=== PATIENT | male | born 1955 | race Caucasian/White ===

== ENCOUNTER 2020-10-08 12:52 | Emergency (ER) | payer MEDICARE ==
[~2020-10-08] VITALS: Ht 177.8 cm; Wt 136.1 kg
[2020-10-08 15:00] LABS: BASOPHILS ABSOLUTE AUTO 0.06 K/mm3 (0.00-0.23); BASOPHILS PERCENT AUTO 0 % (0-2); EOSINOPHILS ABSOLUTE AUTO 0.15 K/mm3 (0.00-0.68); EOSINOPHILS PERCENT AUTO 1 % (0-6); Hemoglobin 17.6 g/dL (13.5-17.5); IMMATURE GRAN ABSOLUTE AUTO 0.07 K/mm3 (0.00-0.10); IMMATURE GRAN PERCENT AUTO 1 % (0-1); LYMPHOCYTES ABSOLUTE AUTO 1.64 K/mm3 (0.84-5.20); LYMPHOCYTES PERCENT AUTO 11 % (21-46); MONOCYTES ABSOLUTE AUTO 1.21 K/mm3 (0.16-1.47); MONOCYTES PERCENT AUTO 8 % (4-13); Mean Corpuscular HGB 29.6 pg (26.0-34.0); Mean Corpuscular Volume 93 fL (80-100); Mean Platelet Volume 9.3 fL (9.1-12.4); NEUTROPHILS PERCENT AUTO 80 % (41-73); Platelet Count 222 K/mm3 (150-400); RDW Standard Deviation 44.4 fL (35.1-46.3); Red Blood Cell Count 5.94 M/mm3 (4.30-5.90); White Blood Cell Count 15.33 K/mm3 (4.00-11.30)
[2020-10-08 15:14] LABS: International Normalized Ratio 1.06; Prothrombin Time Results 11.3 Sec (9.7-11.5)
[2020-10-08 15:28] LABS: Alanine Aminotransfer (ALT/SGP 23 U/L (12-78); Albumin, Blood 2.9 g/dL (3.4-5.0); Albumin/Globulin Ratio 0.7 (0.8-1.8); Alk Phos 64 U/L (50-136); Anion Gap 3 mmol/L (6-16); Aspartate Aminotrans (AST/SGOT 22 U/L (12-37); Bilirubin, Total 0.9 mg/dL (0.1-1.0); Blood Urea Nitrogen 13 mg/dL (8-24); Bun/Creatinine Ratio 29.5 (12.0-20.0); CO2, Blood 32 mmol/L (21-32); Calcium, Blood 8.5 mg/dL (8.5-10.1); Chloride, Blood 103 mmol/L (98-108); Creatinine, Blood 0.44 mg/dL (0.60-1.20); Globulin, Blood 4.4 g/dL (2.2-4.0); Glomerular Filtration Rate >60 (60-); Glucose, Blood 128 mg/dL (70-99); Potassium, Blood 4.1 mmol/L (3.5-5.5); Sodium, Blood 138 mmol/L (136-145); Total Protein, Blood 7.3 g/dL (6.4-8.2)
[2020-10-08] MEDS ORDERED: WARF5 PO (15:50)
[2020-10-08] MEDS ORDERED: CEPH500 PO (16:09)
== END 2020-10-08 16:12 | disposition home or self-care (01) ==
LOC: ER 12:52
PROVIDERS: Emergency Medicine
DX: L89.159 Pressure ulcer of sacral region, unspecified stage (principal); Z76.0 Encounter for issue of repeat prescription; Z72.3 Lack of physical exercise
CPT/HCPCS: 36415; 80053; 85025; 85610; 99284-25; A9270

== ENCOUNTER 2020-11-18 13:19 | Emergency (ER) | payer OTHER ==
[~2020-11-18] VITALS: Ht 182.9 cm; Wt 170.1 kg
[~2020-11-18 13:19] MED LIST: CEPH500 PO; WARF5 PO
[2020-11-18] MEDS ORDERED: JANTOVEN2.5 M1 (13:31)
[2020-11-18] MEDS ORDERED: AMLODIPINE BES2.5 MG PO (13:32)
[2020-11-18 14:42] LABS: BASOPHILS ABSOLUTE AUTO 0.05 K/mm3 (0.00-0.23); BASOPHILS PERCENT AUTO 0 % (0-2); EOSINOPHILS ABSOLUTE AUTO 0.17 K/mm3 (0.00-0.68); EOSINOPHILS PERCENT AUTO 2 % (0-6); Hemoglobin 18.4 g/dL (13.5-17.5); IMMATURE GRAN ABSOLUTE AUTO 0.03 K/mm3 (0.00-0.10); IMMATURE GRAN PERCENT AUTO 0 % (0-1); LYMPHOCYTES ABSOLUTE AUTO 2.09 K/mm3 (0.84-5.20); LYMPHOCYTES PERCENT AUTO 18 % (21-46); MONOCYTES ABSOLUTE AUTO 0.91 K/mm3 (0.16-1.47); MONOCYTES PERCENT AUTO 8 % (4-13); Mean Corpuscular Volume 91 fL (80-100); Mean Platelet Volume 9.4 fL (9.1-12.4); NEUTROPHILS ABSOLUTE AUTO 8.12 K/mm3 (1.96-9.15); NEUTROPHILS PERCENT AUTO 71 % (41-73); Platelet Count 192 K/mm3 (150-400); RDW Coefficient Variation 13.2 % (11.7-14.2); RDW Standard Deviation 44.2 fL (35.1-46.3); Red Blood Cell Count 6.13 M/mm3 (4.30-5.90); White Blood Cell Count 11.37 K/mm3 (4.00-11.30)
[2020-11-18 14:46] LABS: Hematocrit 55.7 % (37.0-53.0)
[2020-11-18 15:00] LABS: Alanine Aminotransfer (ALT/SGP 30 U/L (12-78); Albumin/Globulin Ratio 0.7 (0.8-1.8); Alk Phos 77 U/L (50-136); Anion Gap 2 mmol/L (6-16); Aspartate Aminotrans (AST/SGOT 17 U/L (12-37); Bilirubin, Total 0.7 mg/dL (0.1-1.0); Blood Urea Nitrogen 8 mg/dL (8-24); Bun/Creatinine Ratio 15.6 (12.0-20.0); CO2, Blood 34 mmol/L (21-32); Calcium, Blood 8.7 mg/dL (8.5-10.1); Chloride, Blood 103 mmol/L (98-108); Creatinine, Blood 0.51 mg/dL (0.60-1.20); Globulin, Blood 4.6 g/dL (2.2-4.0); Glomerular Filtration Rate >60 (60-); Glucose, Blood 105 mg/dL (70-99); Potassium, Blood 4.1 mmol/L (3.5-5.5); Sodium, Blood 139 mmol/L (136-145); Total Protein, Blood 7.6 g/dL (6.4-8.2)
== END 2020-11-18 17:05 | disposition home or self-care (01) ==
LOC: ER 13:19
PROVIDERS: Emergency Medicine
DX: S91.102A Unspecified open wound of left great toe without damage to nail, initial encounter (principal); Z79.01 Long term (current) use of anticoagulants; Z86.711 Personal history of pulmonary embolism; Z87.891 Personal history of nicotine dependence; X58.XXXA Exposure to other specified factors, initial encounter
CPT/HCPCS: 36415; 73630; 80053; 83605; 85025; 87040; 96361; 96374; 99284-25; J2270; J7030

== ENCOUNTER 2020-11-20 11:34 | Emergency (ER) | payer OTHER ==
[~2020-11-20] VITALS: Ht 177.8 cm; Wt 170.1 kg
[~2020-11-20 11:34] MED LIST changes: +AMLODIPINE BES2.5 MG PO; +JANTOVEN2.5 M1
[2020-11-20] MEDS ORDERED: Norco 5-325 Ta1 EACH PO (12:57)
== END 2020-11-20 17:00 | disposition home or self-care (01) ==
LOC: ER 11:34
DX: L60.0 Ingrowing nail (principal); Z79.01 Long term (current) use of anticoagulants; Z79.899 Other long term (current) drug therapy
CPT/HCPCS: 11765; 99284-25; A9270

== ENCOUNTER 2020-12-19 15:16 | Inpatient (IN) | payer OTHER, MEDICARE ==
[~2020-12-19] VITALS: Ht 175.3 cm; Wt 167.5 kg
[~2020-12-19 15:16] MED LIST changes: +Norco 5-325 Ta1 EACH PO
[2020-12-19 16:18] LABS: Source, Urine Clean Catch
[2020-12-19 16:28] LABS: BASOPHILS ABSOLUTE AUTO 0.05 K/mm3 (0.00-0.23); BASOPHILS PERCENT AUTO 0 % (0-2); EOSINOPHILS ABSOLUTE AUTO 0.12 K/mm3 (0.00-0.68); EOSINOPHILS PERCENT AUTO 1 % (0-6); Hemoglobin 17.9 g/dL (13.5-17.5); IMMATURE GRAN ABSOLUTE AUTO 0.05 K/mm3 (0.00-0.10); IMMATURE GRAN PERCENT AUTO 0 % (0-1); LYMPHOCYTES ABSOLUTE AUTO 2.22 K/mm3 (0.84-5.20); LYMPHOCYTES PERCENT AUTO 20 % (21-46); MONOCYTES ABSOLUTE AUTO 0.68 K/mm3 (0.16-1.47); MONOCYTES PERCENT AUTO 6 % (4-13); Mean Corpuscular HGB 29.3 pg (26.0-34.0); Mean Corpuscular HGB Conc 32.2 g/dL (31.5-36.5); Mean Corpuscular Volume 91 fL (80-100); Mean Platelet Volume 9.9 fL (9.1-12.4); NEUTROPHILS ABSOLUTE AUTO 8.02 K/mm3 (1.96-9.15); NEUTROPHILS PERCENT AUTO 72 % (41-73); Platelet Count 166 K/mm3 (150-400); RDW Coefficient Variation 14.1 % (11.7-14.2); RDW Standard Deviation 46.8 fL (35.1-46.3); White Blood Cell Count 11.14 K/mm3 (4.00-11.30)
[2020-12-19 16:32] LABS: Appearance, Urine Hazy (Clear); Bilirubin, Urine Neg (Neg); Blood, Urine 2+ (Neg); Color, Urine Yellow (P-Yellow); Glucose Qualitative, Urine Neg (Neg); Ketones, Urine Neg (Neg); Leukocyte Esterase, Urine 1+ (Neg); Nitrite, Urine Neg (Neg); Protein, Urine 1+ (Neg); Urobilinogen, Urine 1+ (Normal)
[2020-12-19 16:46] LABS: Alanine Aminotransfer (ALT/SGP 23 U/L (12-78); Albumin, Blood 2.9 g/dL (3.4-5.0); Albumin/Globulin Ratio 0.6 (0.8-1.8); Alk Phos 66 U/L (50-136); Anion Gap 2 mmol/L (6-16); Aspartate Aminotrans (AST/SGOT 15 U/L (12-37); Bilirubin, Total 0.8 mg/dL (0.1-1.0); Blood Urea Nitrogen 12 mg/dL (8-24); Bun/Creatinine Ratio 22.2 (12.0-20.0); CO2, Blood 30 mmol/L (21-32); Calcium, Blood 8.5 mg/dL (8.5-10.1); Chloride, Blood 104 mmol/L (98-108); Creatinine, Blood 0.54 mg/dL (0.60-1.20); Globulin, Blood 4.8 g/dL (2.2-4.0); Glomerular Filtration Rate >60 (60-); Glucose, Blood 182 mg/dL (70-99); Sodium, Blood 136 mmol/L (136-145); Total Protein, Blood 7.7 g/dL (6.4-8.2)
[2020-12-19 17:14] LABS: Bacteria Many /hpf; Red Blood Cells, Urine 0-2 /hpf (0-2); Squamous Epithelial Cells Few /hpf (Few)
[2020-12-19 18:09] LABS: Hematocrit 55.6 % (37.0-53.0)
[2020-12-19] MEDS ORDERED: CEPH500 PO (18:39)
[2020-12-20] MEDS ORDERED: JANTOVEN5 M2 PO (11:41)
[2020-12-20] MEDS ORDERED: WARF5 PO (11:57)
[2020-12-20] MEDS ORDERED: IPRAT-ALBUT 0.5-3 ML INH (11:58)
[2020-12-20 19:01] LABS: Troponin I 0.019 ng/mL (0.000-0.040)
[2020-12-20 19:08] LABS: International Normalized Ratio 1.46; Prothrombin Time Results 15.3 Sec (9.7-11.5)
--- NOTE | 2020-12-20 19:55 | NUR ---
Transfer report from [facility] on PT with JAMES on CPAP has own & morbid obesity who has been unable to care for self or ambulate since 08/2020. Being admitted & obs status geiing antibiotics to tx draining abscess. On+ Tele & anticoagulants coumadin for hx PE/DVT. 4 max to toilet & is incontinent of bowel & bladder per RN report. Functional paraplegia, hx of chronic wounds. Await admission to lift room.
--- NOTE | 2020-12-20 21:19 | NUR ---
DR DANIELSON called to inform of request for DNR status order obtained. PT has coccyx sacral dcub with bleeding wounds present on admission. Also has lt great toenail removal recently with blackened area & draining, lt axilla drainging absxcess site, rash bilat groin & skin folds, wound care & photodoc wounds orderes obtained. Bladder scan for incont uncontrolled & place yeh cath for PVR greater than 300 ml. Antifungals ordered for skin care. Will photodoc wounds & care as ordered.
[2020-12-21 02:23] LABS: BASOPHILS ABSOLUTE AUTO 0.06 K/mm3 (0.00-0.23); BASOPHILS PERCENT AUTO 1 % (0-2); EOSINOPHILS ABSOLUTE AUTO 0.21 K/mm3 (0.00-0.68); EOSINOPHILS PERCENT AUTO 2 % (0-6); Hematocrit 52.8 % (37.0-53.0); Hemoglobin 17.2 g/dL (13.5-17.5); IMMATURE GRAN ABSOLUTE AUTO 0.06 K/mm3 (0.00-0.10); IMMATURE GRAN PERCENT AUTO 1 % (0-1); LYMPHOCYTES ABSOLUTE AUTO 2.25 K/mm3 (0.84-5.20); LYMPHOCYTES PERCENT AUTO 17 % (21-46); MONOCYTES ABSOLUTE AUTO 1.02 K/mm3 (0.16-1.47); MONOCYTES PERCENT AUTO 8 % (4-13); Mean Corpuscular HGB 29.1 pg (26.0-34.0); Mean Corpuscular HGB Conc 32.6 g/dL (31.5-36.5); Mean Corpuscular Volume 89 fL (80-100); Mean Platelet Volume 9.5 fL (9.1-12.4); NEUTROPHILS ABSOLUTE AUTO 9.67 K/mm3 (1.96-9.15); NEUTROPHILS PERCENT AUTO 73 % (41-73); Platelet Count 192 K/mm3 (150-400); RDW Coefficient Variation 13.6 % (11.7-14.2); RDW Standard Deviation 45.5 fL (35.1-46.3); Red Blood Cell Count 5.91 M/mm3 (4.30-5.90); White Blood Cell Count 13.27 K/mm3 (4.00-11.30)
[2020-12-21 02:42] LABS: Alanine Aminotransfer (ALT/SGP 20 U/L (12-78); Albumin, Blood 2.6 g/dL (3.4-5.0); Albumin/Globulin Ratio 0.6 (0.8-1.8); Alk Phos 59 U/L (50-136); Anion Gap 4 mmol/L (6-16); Aspartate Aminotrans (AST/SGOT 11 U/L (12-37); Bilirubin, Total 1.3 mg/dL (0.1-1.0); Blood Urea Nitrogen 15 mg/dL (8-24); Bun/Creatinine Ratio 27.4 (12.0-20.0); CO2, Blood 32 mmol/L (21-32); CPK Creatine Kinase 80 U/L (39-308); Chloride, Blood 103 mmol/L (98-108); Creatinine, Blood 0.55 mg/dL (0.60-1.20); Globulin, Blood 4.4 g/dL (2.2-4.0); Glomerular Filtration Rate >60 (60-); Glucose, Blood 112 mg/dL (70-99); Potassium, Blood 3.8 mmol/L (3.5-5.5); Sodium, Blood 139 mmol/L (136-145); Troponin I 0.022 ng/mL (0.000-0.040)
[2020-12-21 10:28] LABS: International Normalized Ratio 1.57; Prothrombin Time Results 16.4 Sec (9.7-11.5)
--- NOTE | 2020-12-21 18:01 | NUR ---
SHIFT SUMMARY PT AWAKE AND ALERT ALL DAY. CPAP ON MOST OF DAY WITH NOSE MASK. HAS DENIED PAIN OR NAUSEA. DRESSING APPLIED TO COCCYX AREA. CREAMS AND POWDERS TO RED AREAS AND RASHES. WALL LIFT USED TO TRANSFER PT TO RECLINER CHAIR AND PT REPORTED GREAT ENJOYMENT BEING IN CHAIR FOR THE FIRST TIME IN SEVERAL MONTHS. REPOSITIONED FOR SKIN CARE. INCONTINENT OF URINE.
--- NOTE | 2020-12-21 22:22 | NUR ---
ASSUMPTION OF CARE. AOX3, OBESE AND IMMOBILE, HAS BEEN FOR SOME TIMES. UNABLE TO SIT UP HE IS UNABLE TO BREATH. HAS TO KEEP CPAP ON AT ALL TIMES. SATS >90%. LUNG SOUNDS DIMINISHED. INCONTIENT OF BOWEL AND URINE. CHANGED PADDING. 3-4 PERSON ASSIST OR USE OF LIFT. CLEANED SKIN FOLDS AND APPLIED POWDER. CHANGED DRESSING IN ARM PIT LEFT SIDE. DRAINAGE IS PUS LIKE AND THERE IS FIRM INDURATED AREA AROUND, TENDER TO TOUCH. REPOSITIONED ON RIGHT SIDE. DENIES ANY NEEDS. CALL LIGHT IS IN REACH.
--- NOTE | 2020-12-22 05:28 | NUR ---
SHIFT SUMMARY: AOX3, BEDBOUND, LIFT TO MOVE. 2-3 PERSON TURN. SOME OF THE SKIN FOLDS ARE IMPROVING WITH USE OF THE ANTI-FUNGAL POWDER RATHER THEN CREAM. GROIN STILL VERY RED DUE TO INCONTINENCE. CALUS BUILDUP ON RIGHT POSTERIOR INNER THIGH FROM LAYING IN SAME POSITION. SAME TO BOTTOM AREA, REDNESS ON BOTTOM, FOAM TO PROTECT. HAS SMALL BM LAST NIGHT. USES CPAP ALMOST CONTINUOUSLY, UNABLE TO BREATH WHEN HE SITS UP. SATS REMAIN >90%. LUNG SOUNDS VERY DIMINISHED. ABCESS IN LEFT AXILLARY DRAINING PUS, VERY SMALL AMOUNTS. INDURATED ALL AROUND, COULD BENIFIT FROM I&D. DRESSING IN PLACE. REPOSITIONED EVERY 2 HOURS. VS WNL, AFEBRILE. NO PAIN. NO OTHER CHANGES TO REPORT. CALL LIGHT IN REACH.
[2020-12-22 05:31] LABS: International Normalized Ratio 2.24; Prothrombin Time Results 22.9 Sec (9.7-11.5)
--- NOTE | 2020-12-22 19:25 | NUR ---
a+o but sleepy, says he just is not motivated but feels fine, denied pain, call light in reach, no acute changes noted, bed in low position, saline locked, rm air, bsr shared with returning noc nurse and pt
--- NOTE | 2020-12-22 21:52 | NUR ---
ASSUMPTION OF CARE. DEL IS DOING GOOD TODAY. NO ACUTE CHANGES OR CONCERN. WOUND TO LEFT AXILLARY SMALL PUS LIKE DRAINAGE, FIRM SURROUNDING AREA, TENDER. REDNESS IN SKIN FOLDS ARE IMPROVING. BOTTOM STILL RED, DRESSING IN PLACE. EDEMA NOTED TO BLE, ELEVATED ON PILLOWS. CHANGED ATTENDS PAD. RT IN ROOM FOR BREATHING TREATMENT. CALL LIGHT IN REACH.
[2020-12-23 05:16] LABS: International Normalized Ratio 2.63; Prothrombin Time Results 26.6 Sec (9.7-11.5)
--- NOTE | 2020-12-23 06:04 | NUR ---
SHIFT SUMMARY: AOX3, BEDBOUND TO LIFT PATIENT. WAITING FOR PLACEMENT. ABCESS IN LEFT AXILLARY DRAINING VERY LITTLE AND INDURATED AND FIRM. NOT DECREASING IN SIZE. TENDER TO TOUCH. REDNESS IN SKIN FOLDS CONTINUE TO IMPROVE. GROIN REDNESS SLIGHTLY BETTER, NO CHANGE TO BOTTOM, DRESSING INTAKE. CPAP CONTINOUSLY, REPOSITION EVERY 2 HOURS. NO PAIN. VS WNL, AFEBRILE. CALL LIGHT IN REACH.
--- NOTE | 2020-12-23 19:22 | NUR ---
a+o, no acute changes, medicated as prescribed, worked with pt but made little progress, call light in reach, cpap, saline locked, bsr shared with noc nurse and pt
--- NOTE | 2020-12-24 04:43 | NUR ---
SHIFT SUMMARY A/O, ABLE TO MAKE NEEDS KNOWN. COOPERATIVE WITH CARE. CALLS AND ANSWERS QUESTIONS APPROPRIATELY. NO C/O PAIN/DISCOMFORT. REMAINS INCONT OF BOWEL/BLADDER. ATTENDS IN PLACE WITH ROUTINE CHECKS. BEDREST WITH REPOSITIONING. LIFT UTILIZED; HOWEVER, PATIENT ABLE TO ASSIST WITH TURNING. REMAINED ON CPAP T/O NIGHT. ABLE TO REST SOME OVERNIGHT. CONCERNED ABOUT EXCESS WAX IN EARS; STATED WOULD LIKE ATTENDING TO CLEAN THEM OUT IF POSSIBLE. NO ACUTE CHANGES NOTED OVERNIGHT. L AXILLA INDURATED WITH SEROSANGUINOUS DRAINAGE NOTED; CLEANSED AND PLACED EXUDRY PAD TO AREA. BED REMAINED IN LOWEST POSITION. CALL LIGHT AND BELONGINGS WITHIN REACH. CONTINUE WITH CURRENT PLAN OF CARE. REPORT TO ONCOMING RN.
[2020-12-24 05:46] LABS: International Normalized Ratio 2.74; Prothrombin Time Results 27.7 Sec (9.7-11.5)
--- NOTE | 2020-12-24 19:35 | NUR ---
call light in reach, bed bound, a+o, call light in reach, ears cleaned, bladder scanned, depends and pads changed, still needing assist to move in bed, requested larger bed but none available yet, cpap needs 02 when pt sleeps stays above 90 when awake even with o2 turned off, saline locked
--- NOTE | 2020-12-25 05:03 | NUR ---
SHIFT SUMMARY A/O, ABLE TO MAKE NEEDS KNOWN. COOPERATIVE WITH CARE. CALLS AND ANSWERS QUESTIONS APPROPRIATELY. NO C/O PAIN/DISCOMFORT. REMAINS INCONT OF BOWEL/BLADDER. ATTENDS IN PLACE WITH ROUTINE CHECKS. APPEARED TO REST MUCH OF THE NIGHT. NO ACUTE CHANGES NOTED. BED REMAINS IN LOWEST POSITION. CALL LIGHT AND BELONGINGS WITHIN REACH. CONTINUE WITH CURRENT PLAN OF CARE. REPORT TO ONCOMING RN.
[2020-12-25 05:30] LABS: International Normalized Ratio 2.76; Prothrombin Time Results 27.9 Sec (9.7-11.5)
--- NOTE | 2020-12-25 19:30 | NUR ---
PT [id number]. CALLS APPROPRIATELY. BM TODAY. APPETITE GOOD. WEARS CONTINUOUS CPAP, WITH O2 TITRATION 1-4L TO KEEP SAT ABOVE 90. NO MAJOR CLINICAL CHANGES. PT HAS NO MAJOR CONCERNS AT THIS TIME. PLAN IS SNF PLACEMENT
[2020-12-26 05:30] LABS: International Normalized Ratio 2.68; Prothrombin Time Results 27.1 Sec (9.7-11.5)
--- NOTE | 2020-12-26 05:43 | NUR ---
SHIFT SUMMARY- PT. A&O, PLEASANT, AND COOPERATIVE WITH CARE. BEDBOUND @BASELINE, LIFT ASSIST. INCONT OF BOWEL AND BLADDER, ATTENDS IN PLACE. PT. USES CPAP CONTINOUSLY BETWEEN 2-4L. DESATS EASILY WITH EXERTION FROM TURNING AND WHEN ASLEEP. PERFORMED WOUND CARE TO L AXILLARY ABSCESS LAST NIGHT. CLEANSED AND COVERED WITH EXUDRY, TOLERATED WELL. C/O HEADACHE THIS AM 7/10. MEDICATED WITH TYLENOL PER EMAR. PT. APPEARS TO BE RESTING COMFORTABLY AT THIS TIME, NO APPARENT DISTRESS NOTED. VSS. CALL LIGHT WITHIN REACH AND SIDE RAILS UPX3. WILL CONT TO MONITOR.
--- NOTE | 2020-12-26 19:27 | NUR ---
PT AA7OX4. CALLS APPROPRIATELY. BM TODAY. APPETITE GOOD. BM TODAY. DENIES PAIN. ABSCESS UNDER L AXILLARY WITH MODERTE DRAINAGE, CLEANSED WITH DERMAL WOUND, RINSED NS, TRIALED MAXI-PAD FOR DRAINAGE. NO OTHER CLINICAL CHANGES NOTED
[2020-12-26] MEDS ORDERED: NYSTOP15 GM TOP (23:43)
[2020-12-27 05:21] LABS: International Normalized Ratio 2.56
--- NOTE | 2020-12-27 06:44 | NUR ---
SHIFT SUMMARY PT IS A 65 Y/O MALE, ADMITTED FOR FUNCTIONAL PARAPLEGIA. HE IS BEDREST, LIFT PT, INCONTINENT. VITAL SIGNS STABLE. PT IS ON CONTINUOUS CPAP, ON 4L, INCREASED TO 10L DURING THE NIGHT R/T PT'S FREQUENT DESAT EPISODES DOWN TO THE 80S. VITAL SIGNS OTHERWISE STABLE. PT WAS MEDICATED THIS AM FOR A MIRZA WITH PRN TYLENOL. NO C/O NAUSEA OR ACUTE SOB. NO ACUTE CHANGES IN PT CONDITION NOTED. WILL CONTINUE TO MONITOR AND TREAT PER EMAR UNTIL HAND OFF TO DAY SHIFT RN.
--- NOTE | 2020-12-27 19:39 | NUR ---
CLIENT [id number]. UP TO CHAIR WITH LIFT. DENIES PAIN. RT SWITCHED CLIENT TO HOSPITAL CPAP/BIPAP. CLIENT UNABLE TO MAINTAIN SAT ON CPAP SETTING. HE WAS SWITCHED TO BIPAP AT REST AND 4L O2 NC WHILE AWAKE. CLIENT TOLERATING CHANGE SO FAR. RT RECOMMENDS THAT HE HAVE A PULMONARY CONSULT. NO OTHER MAJOR CHANGES NOTED.
[2020-12-28 05:41] LABS: International Normalized Ratio 2.55; Prothrombin Time Results 25.9 Sec (9.7-11.5)
--- NOTE | 2020-12-28 07:12 | NUR ---
SHIFT SUMMARY PT IS A 65 Y/O MALE, ADMITTED FOR FUNCTIONAL PARAPLEGIA. CURRENTLY BEDREST/LIFT PT, A&O X 4. PT IS ON BIPAP WITH 5-6L BLEED IN OF O2. DURING THE NIGHT, PT HAD 5 EPISODES OF DESATTING TO THE 70S FOR SEVERAL SECONDS PER BIOX MONITOR WITH BIPAP MASK IN PLACE, O2 BLEED IN WAS INCREASED FROM 5L TO 6L WHEN PT CONSISTENTLY BEGAN DESATTING TO THE 80S. VITAL SIGNS OTHERWISE STABLE. NO C/O ACUTE PAIN, NAUSEA OR SOB. NO OTHER ACUTE CHANGES IN PT CONDITION NOTED DURING THE NIGHT. REPORT GIVEN TO ONCOMING RN.
--- NOTE | 2020-12-29 03:30 | NUR ---
SHIFT SUMMARY, PATIENT HAD NO ACUTE CHANGES OBSERVED. AXOX 4 AND BEDREST/LIFT. ON 3L O2 NC AND 6L O2 BLEED IN FOR BIPAP. ON CONTINUOUS PULSE OXIMETRY STATING 93% AND WILL DESTAT SLEEPING AND RETURN TO BASE QUICKLY. RT IN TO SETUP BIPAP AND SETTINGS. DENIES PAIN AND N/V. CONDOM CATH IN PLACE. PIV REMAINS INTACT. VSS/AFEBRILE. CALL LIGHT IN REACH. BED IN LOWEST POSITION. WILL CONTINUE TO MONITOR UNTIL DAY SHIFT NURSE ASSUMES CARE.
--- NOTE | 2020-12-29 04:16 | NUR ---
RT IN MULTIPLE TIMES WORKING ON BIPAP SETTING WITH CONSTANT ALARMING T/O SHIFT.
[2020-12-29 06:14] LABS: International Normalized Ratio 2.19; Prothrombin Time Results 22.4 Sec (9.7-11.5)
--- NOTE | 2020-12-29 18:41 | NUR ---
PT WAITING FOR PLACEMENT, ZOOM INTERVIEW WITH A FACILITY ON 01/02. HE IS ALERT, ORIENTED AND COOPERATIVE WITH CARE. HE IS INCONTIN, ATTENDS IN PLACE, REQUIRES 2-3 PERSON REPOSITION AND CHANGE. NO ACUTE CHANGES NOTED THIS SHIFT. WILL CONTINUE TO MONITOR AND REPORT TO ONCOMING RN
--- NOTE | 2020-12-30 05:13 | NUR ---
SHIFT SUMMARY ASSUMED CARE OF PT AT 1900. PT IS A/OX4. HEART SOUNDS REGULAR, LUNG SOUNDS HAVE CRACKLES IN THE R LUNG AND WHEEZING T/O. PT ON 3L NC, WEARING HIS CPAP AT NIGHT. PT STARTED WITH A 5L BLEED IN BUT THE MONITOR KEPT BEEPING, RT CONSULTED AND TURNED PT UP TO 10L BLEED AND AND SAID THAT THE CPAP IS NOT WORKING WELL FOR THE PT DUE TO THE FACT THAT HE ALSO CENTRAL SLEEP APNEA WHICH ONLY RESPONDS TO A TRILOGY. RT SUGGESTS PT GETS TRILOGY OUT PT UNPON DISCHARGE. PT WAS INCONTIENT OF URINE AND BOWEL T/O THE NIGHT. PT HAS WOUNDS UNDER HIS L ARMPIT, L BIG TOE AND HAS A RED BOTTOM. PT HAS MANY SKIN TEARS UNDER HIS SKIN FOLDS. PT SKIN IS VERY SCALY AND DRY, PT HAS ACNE WHICH BLEEDS WHEN MOVES. CALL LIGHT IN REACH, BED IN LOWEST POSITION.
[2020-12-30 05:45] LABS: International Normalized Ratio 2.08; Prothrombin Time Results 21.4 Sec (9.7-11.5)
--- NOTE | 2020-12-30 17:23 | NUR ---
SHIFT SUMMARY- PT IS A/O, PLESANT AND COOPERATIVE. HE IS EATING AND DRINKING WELL. HE IS INC AND REQUIRES ASSISTANCE TO CHANGE. HE IS ON OXYGEN VIA NC AND MAINTAINING HIS O2 SATS. HIS BED IS IN THE LOW POSITION AND CALL LIGHT IS WITIN REACH.
[2020-12-31 04:43] LABS: International Normalized Ratio 2.14; Prothrombin Time Results 21.9 Sec (9.7-11.5)
--- NOTE | 2020-12-31 04:56 | NUR ---
SHIFT SUMMARY ASSUMED CARE OF PT AT 1900. PT IS A/OX4. HEART SOUNDS DISTANT. LUNG SOUNDS HAVE WHEEZING T/O, RT CONSULTED WITH CARE, PT O2 WOULD DROP INTO THE 60% BUT WITH BOUNCE BACK TO 90 WHEN AWOKEN. PT SLEPT WITH CPAP AT 10L, RT SUGGESTS THAT PT NEEDS A TRILOGY TO IMPROVE THIS. PT WAS INCONTIENT OF BOWEL AND BLADDER. PT ABCESS IN HIS L ARMPIT IS DRAINING THICK RED AND WHITE FLUIDS. PT BUTTOCK LOOKS BETTER THAN WHEN HE FIRST CAME IN [place] BY PHOTO DOCUMENTATION. PT L BIG TOE IS SENSITIVE TO TOUCH. PT HAS NE NEW COMPLAINTS. CALL LIGHT IN REACH, BED IN LOWEST POSITON.
--- NOTE | 2020-12-31 18:33 | NUR ---
SHIFT SUMMARY- PT IS A/O, PLESANT AND COOPERATIVE. HE IS EATING AND DRINKING WELL. HI IS INC AND REQUIRING MAX ASSISTANCE TO CHANGE. HIS BED IS IN THE LOW POSITION AND CALL LIGHT IS WITIN REACH.
--- NOTE | 2021-01-01 04:30 | NUR ---
SHIFT SUMMARY ASSUMED CARE OF PT AT 1900. PT IS A/OX4. HEART SOUNDS DISTANT, LUNG SOUNDS HAVE WHEEZING T/O. PT WAS TURNED UP TO 15L BLEED INTO HIS CPAP. PULSE OXIMIZER CONTINUE TO BEEP AND SATURATIONS DIP INTO 75% BUT THEN BACK TO 94% WHEN AWOKEN. PT WAS INCONTINENT OF URINE AND STOOL. PT ABSESS DID NOT DRAIN MUCH YESTERDAY. PT HAS NO NEW COMPLAINTS. CALL LIGHT IN REACH, BED IN LOWEST POSTION.
[2021-01-01 05:40] LABS: International Normalized Ratio 1.96; Prothrombin Time Results 20.2 Sec (9.7-11.5)
--- NOTE | 2021-01-01 19:11 | NUR ---
SHIFT SUMMARY: NO ACUTE CHANGES TO REPORT THIS SHIFT. PT A&O; CALM AND COOPERATIVE WITH CARE. MEDICATED FOR L GREAT TOE PAIN PER EMAR. O2 @ 3L; CPAP @ NOC c 10L BLEED-IN.AWAITING PLACEMENT. REPORT GIVEN TO ONCOMING RN.
--- NOTE | 2021-01-02 04:11 | NUR ---
VACUUM CLEANER ASSEMBLER SUMMARY A/OX4, COOPERATIVE WITH CARE. DENIES PAIN. 3L VIA NC AT BASELINE, CPAP AT NIGHT WITH 10L BLEED IN. PT QUICKLY DESATS TO MID 80'S WITH EXERTION, OTHERWISE MAINTAINS SATS ABOVE 90 AT REST. USE OF LIFT FOR REPOSITIONING. VSS, NO ACUTE CHANGES AT THIS TIME. BED IN LOWEST POSITION WITH CALL LIGHT IN REACH. WILL CONTINUE TO MONITOR AND REPORT TO ONCOMING RN.
[2021-01-02 05:10] LABS: International Normalized Ratio 2.11; Prothrombin Time Results 21.8 Sec (9.7-11.5)
--- NOTE | 2021-01-02 18:03 | NUR ---
SHIFT SUMMARY: NO ACUTE EVENTS. BLADDER SCAN SHOWED < 10 ML IN BLADDER, DOES NOT SEEM TO BE RETAINING. TRANSFERS ARE LIFT WITH 2-3 PEOPLE. WEARING O2 @ 3 L/MIN NC WHILE AWAKE, CPAP WITH 10 L/MIN BLEED IN WHEN SLEEPING, ON CONTINUOUS OXIMETRY. L AXILLA ABSCESS DRAINING SS FLUID, PLACED EXUDRY UNDER ARM. HAS SKIN TEAR ON R GLUTEAL CLEFT, COVERED WITH FOAM DRESSING. VERY DIFFICULT TO REPOSITION D/T PT'S BODY HABITUS AND BARIATRIC BED NOT AVAILABLE AT THIS TIME. HAD INTERVIEW TODAY WITH SNF CLOSE TO [place]. PT/OT TRIED TO WORK WITH PATIENT TODAY.
--- NOTE | 2021-01-03 04:52 | NUR ---
SHIFT SUMMARY A/O X4, BEDREST WITH USE OF LIFT FOR REPOSITIONING. DENIES PAIN AT THIS TIME. USE OF 3L VIA NC AND CPAP WITH 10L BLEED IN AT NIGHT. DESATS TO MID 80'S WITH EXERTION. VSS, NO ACUTE CHANGES AT THIS TIME. BED IN LOWEST POSITION WITH CALL LIGHT IN REACH. WILL CONTINUE TO MONITOR AND REPORT TO ONCOMING RN.
[2021-01-03 06:38] LABS: International Normalized Ratio 2.17; Prothrombin Time Results 22.4 Sec (9.7-11.5)
--- NOTE | 2021-01-03 18:24 | NUR ---
SHIFT SUMMARY PT A&OX4, ABLE TO MAKE NEEDS KNOWN. PLEASANT AND COOPERATIVE TO CARE. NO C/O PAIN OR ANY DISCOMFORT. NO C/O CP, SOB OR N&V. PT ON O2 3LPM O2 VIA NC, ON CONT BIOX, SATS >92%. PT CALM AND RESTED IN BED AT THIS TIME. PT NEEDS 2 MAX ASSIST WITH LIFT FOR TRANSFERS. BED AT LOWEST POSITION. CALL LIGHT WITHIN REACH.
--- NOTE | 2021-01-03 19:38 | NUR ---
PT GAVE THIS STUDENT NURSE PERMISSION TO PROVIDE CARE ON 01/03/21
--- NOTE | 2021-01-04 04:31 | NUR ---
SHIFT SUMMARY PT PLEASANT&COOPERATIVE TO CARE. CHANGED MEPILEX DRESSING ON R GLUTEAL FOLD & SACRAL AREA. PT INCONTINENT T/O THE NIGHT. CPAP 5L O2 SATS% 90 TO 93. NO ACUTE CHANGES THIS SHIFT. BED IN LOWEST POSITION, CALL LIGHT WITHIN REACH. WILL CONTINUE TO MONITOR.
[2021-01-04 05:47] LABS: International Normalized Ratio 2.04; Prothrombin Time Results 21.2 Sec (9.7-11.5)
--- NOTE | 2021-01-04 15:49 | NUR ---
SHIFT SUMMARY NO ACUTE CHANGES NOTED TO PATIENT THIS SHIFT. PATIENT A&OX4, ABLE TO MAKE NEEDS KNOWN. PLEASANT AND COOPERATIVE TO CARE. NO C/O PAIN OR ANY DISCOMFORT THIS SHIFT. NO C/O CP, SOB, OR N&V. PT CONT ON 5LPM O2 VIA NC. PT REQUIRES 2 MAX ASSISTANCE WITH BED MOBILITY AND A LIFT FOR TRANSFERS. PT CALM AND RESTED IN BED T/O SHIFT, BED AT LOWEST POSITION. CALL LIGHT WITHIN REACH,
--- NOTE | 2021-01-04 20:51 | NUR ---
PT GAVE THIS [employer] NURSE PERMISSION TO PROVIDE CARE ON 01/04/21.
--- NOTE | 2021-01-04 23:19 | NUR ---
PT O2 SAT @ 67%. TURNED PT O2 TO 10L BLEED IN & CALLED RT.
--- NOTE | 2021-01-04 23:20 | NUR ---
RT ADJUSTED PT MASK & ACHEIVED A BETTER SEAL. WILL CONTINUE TO MONITOR
--- NOTE | 2021-01-05 05:38 | NUR ---
NO ACUTE CHANGES THIS SHIFT. ABLE TO MAKE NEEDS KNOWN. PLEASANT&COOPERATIVE TO CARE. PT DID NOT DO WELL ON 5L BLEED TO BIPAP; DESAT TO 68% & HR 43. ADJUSTED TO 10L RT ASSESSED & FIXED SEAL; PT REMAINED IN THE 90% SAT RANGE FOR THE REMAINDER OF THE EVENING. BED IN LOWEST POSITION AND CALL LIGHT WITHIN REACH. WILL CONTINUE TO MONITOR.
[2021-01-05 05:49] LABS: International Normalized Ratio 2.02
--- NOTE | 2021-01-05 18:15 | NUR ---
SHIFT SUMMARY PT IS AOX4. PT DENIES PAIN, N/V, SOB. PT IS ON BEDREST AND REQUIRES 3-4 PEOPLE FOR BED CHANGES. THIS RN REPLACED MEPILEX ON PT'S COCCYX AND BOTTOM. THIS RN REPLACED EXUDRY DRESSING IN PT'S LEFT AXILLARY. PT WORKED WITH PT/OT TODAY. PT'S APPETITE IS GOOD. NO PROCEDURES OCCURRED TODAY. PLAN IS FOR PLACEMENT. PT DID NOT HAVE ANY VISITORS TODAY. PT IS IN BED, CALL LIGHT IN REACH, BED IN LOW POSITION.
--- NOTE | 2021-01-06 03:24 | NUR ---
SHIFT SUMMARY PATIENT HAD NO ACUTE CHANGES OBSERVED. AXOX 4 AND BEDREST. THREE PERSON TURN AND CHANGE. ON 5L O2 NC AND BIPAP WITH 10L BLEED AT NIGHT. PIV REMAINS INTACT. VSS/AFEBRILE. DENIES PAIN AND N/V. COOPERATIVE WITH CARE. CALL LIGHT IN REACH. BED IN LOWEST POSITION. WILL CONTINUE TO MONITOR UNTIL DAY SHIFT NURSE ASSUMES CARE.
[2021-01-06 05:57] LABS: International Normalized Ratio 2.22; Prothrombin Time Results 22.9 Sec (9.7-11.5)
--- NOTE | 2021-01-06 18:14 | NUR ---
SHIFT SUMMARY. A&OX4, PLEASANT AND COOPERATIVE WITH CARE, 3 PERSON ASSIST WITH INCONTINENCE CARE AND BED MOBILITY. PT REPORTS PAIN WITH MOVEMENT ALTHOUGH DENIES THE NEED FOR PAIN MEDICATION. PT REPORTS SOB ONLY WITH HOB FLAT, ON BASELINE O2. NO N/V. NO OTHER CHANGES OR CONCERNS.
--- NOTE | 2021-01-07 03:32 | NUR ---
SHIFT SUMMARY PATIENT HAD NO ACUTE CHANGES OBSERVED. AXOX 4 AND BEDREST. THREE PERSON ASSIST FOR INCONTINENT CHANGES AND REPOSITIONING. ON 5L O2 NC AND BIPAP WITH 10L O2 BLEED IN WITH CONTINUOUS PULSE OXIMETRY. HR WILL DROP TO HIGH 30'S AND BACK INTO 90'S AT TIMES. VSS/AFEBRILE. DENIES PAIN AND N/V. COOPERATIVE WITH CARE. CALL LIGHT IN REACH. BED IN LOWEST POSITION. WILL CONTINUE TO MONITOR UNTIL DAY SHIFT NURSE ASSUMES CARE.
[2021-01-07 05:35] LABS: International Normalized Ratio 2.47; Prothrombin Time Results 25.3 Sec (9.7-11.5)
--- NOTE | 2021-01-07 18:45 | NUR ---
SHIFT SUMMARY. A&OX4, PLEASANT AND COOPERATIVE WITH CARE. INCONTINENT OF BOWEL AND BLADDER, INCONTINENCE CARE PERFORMED T/O SHIFT. BED BATH COMPLETED THIS AM. WOUND CARE COMPLETED TO BUTTOCKS ON LAST INCONTINENCE ROUNDS THIS EVENING. PT REQUIRES MINIMUM OF THREE STAFF FOR REPOSITIONING FOR STAFF SAFETY. PT DENIES N/V, GOOD MEAL INTAKE. PT REPORTS MUSCLE SPASM TYPE PAIN ONLY WITH MOVEMENT, DENIES ANY FURTHER INTERVENTION OTHER THAN REPOSITIONING. PT SOB ONLY WHEN LYING FLAT. CONTINUES WITH BASELINE O2 REQUIREMENTS. NO OTHER CHANGES OR CONCERNS.
[2021-01-08 05:04] LABS: International Normalized Ratio 2.63; Prothrombin Time Results 26.9 Sec (9.7-11.5)
--- NOTE | 2021-01-08 06:05 | NUR ---
SHIFT SUMMARY AOX3. VSS. SPO2 DROPS WHILE ASLEEP, RT INCREASED O2 @12L WHILE ON BIPAP. CONT PULSE OX >90%. PT ON 5L O2 WHILE AWAKE. DENIES DYSPNEA. E/U RESPIRATIONS. LUNGS DIM IN BASES. REPORTS 2/10 PAIN IN BACK/BUTTOCKS, DENIES NEED FOR MEDS. +2 PITTING EDEMA BLE, FEET ELEVATED. CHANGED MEPILEX ON COCCYX & R GLUTEAL CLEFT, NO DRAINAGE. INCONT & CHANGE PRN. REFUSES FREQUENT REPOSITIONING. CHANGED DRESSING TO L AUXILLARY, SMALL AMOUNT SEROSANGUINOUS DRAINAGE. AWAITING SAFE DC PLAN. CALL LIGHT IN REACH & PT ABLE TO MAKE NEEDS KNOWN.
--- NOTE | 2021-01-08 16:57 | NUR ---
Shift summary No acute changes this shift. VSS. Patient cooperative with care. Pt on 5L O2 NC. BiPap in place while pt sleeps. Waiting for discharge plan. Call light within patient reach.
[2021-01-09 05:50] LABS: International Normalized Ratio 2.75
--- NOTE | 2021-01-09 06:23 | NUR ---
SHIFT SUMMARY- NO ACUTE CHANGES THIS SHIFT. PT. SLEPT T/O THE NIGHT, NO APPARENT DISTRESS NOTED. ON 5L NC WHILE AWAKE AND BIPAP @HS. NO COMPLAINTS OF PAIN OR DISCOMFORT T/O THE NIGHT. L AXILLARY ABSCESS CONTS TO DRAIN SMALL AMOUNT OF SEROSANGUINEOUS DRAINAGE, EXUDRY PAD IN PLACE. PT. AWAITING PLACEMENT, VSS. CALL LIGHT WITHIN REACH, WILL CONT TO MONITOR.
--- NOTE | 2021-01-10 04:42 | NUR ---
SHIFT SUMMARY NO ACUTE CHANGES TO REPORT THIS SHIFT. PT HAS RESTED T/O THE SHIFT, ASSESSMENT REMAINS UNCHANGED. PT STILL AWAITING PLACEMENT AT THIS TIME. PT PLESANT AND COOPERATIVE WITH CARE. BED IN LOWEST POSITION, CALL LIGHT WITHIN REACH.
[2021-01-10 05:14] LABS: International Normalized Ratio 3.03; Prothrombin Time Results 30.7 Sec (9.7-11.5)
--- NOTE | 2021-01-10 17:24 | NUR ---
SHIFT SUMMARY PATIENT MEDICATED X1 FOR SPASMS IN BACK. DENIES NAUSEA AND SHORTNESS OF BREATH. MAINTAINING OXYGEN SATURATION BETWEEN 89-91% ON 5L/NC. UP IN CHAIR WITH LIFT. WORKED WITH PT TODAY. PLEASANT AND COOPERATIVE WITH CARE. MINIMAL DRAINAGE FROM LEFT AXILLA.
--- NOTE | 2021-01-11 04:12 | NUR ---
LOOM CHANGER SUMMARY PT A/O X4. USES BIPAP AT NIGHT AND O2 DURING DAY TIME. DENIES PAIN, NAUSEA. SOB WITH EXERTIONAL MOVEMENT. MEPLEX IN PLACE ON COCCYX AND RIGHT INNER THIGH. PT CALLS APPROPRIATELY. VSS. NO ACUTE CHANGES. CALL LIGHT WITHIN REACH. SLEPT WELL TONIGHT.
[2021-01-11 06:06] LABS: International Normalized Ratio 2.71; Prothrombin Time Results 27.7 Sec (9.7-11.5)
--- NOTE | 2021-01-11 18:12 | NUR ---
NO ACUTE CHANGES. DRESSINGS TO BUTTOCKS CHANGED THIS SHIFT. PT UP IN CHAIR THIS AFTERNOON. NO COMPLAINTS. CALL LIGHT WITHIN REACH.
--- NOTE | 2021-01-11 21:50 | NUR ---
RT IN TO START SLEEP STUDY.
--- NOTE | 2021-01-12 03:08 | NUR ---
SHIFT SUMMARY PATIENT HAD NO ACUTE CHANGES. AXOX 4 AND BEDBOUND/LIFT ROOM. DENIES PAIN AND N/V. SOB WITH EXERTION. SLEEP STUDY THIS SHIFT BY RT. VSS/AFEBRILE. USES BIPAP AT NIGHT AND O2 DURING THE DAY. THREE PERSON TURN AND CHANGE. NO IV ACCESS. CALL LIGHT IN REACH. BED IN LOWEST POSITION. WILL CONTINUE TO MONITOR UNTIL DAY SHIFT NURSE ASSUMES CARE.
[2021-01-12 06:55] LABS: International Normalized Ratio 2.4; Prothrombin Time Results 24.7 Sec (9.7-11.5)
--- NOTE | 2021-01-12 18:07 | NUR ---
NO ACUTE CHANGES. PT REQUIRES ASSISTANCE WITH ALL CARES. CALL LIGHT WITHIN REACH.
[2021-01-13 05:24] LABS: International Normalized Ratio 2.6; Prothrombin Time Results 26.6 Sec (9.7-11.5)
--- NOTE | 2021-01-13 06:13 | NUR ---
PT IS A/O, OBESE, LIFT TRANSFER. PT WEARS HOME CPAP AT CONTINUOUS BIOX MONITORING; AWAITING PLACEMENT TO SNF.
--- NOTE | 2021-01-13 18:03 | NUR ---
SHIFT SUMMARY L AXILLARY ABSCESS DRAINING SEROSANG FLUID, DR CURRIE CALLED AND INFORMED, NO INTERVENTION AT THIS TIME. INCONTINENT URINE. HAD A BM THIS SHIFT. ON 3L OXYGEN NC WHILE AWAKE. HAVING MUSCLE SPASMS, DR CURRIE STATES SHE WILL ORDER A MUSCLE RELAXER. BUTTOCKS RED, PREVENTATIVE MEPILEX TO SACRAL AREA. GOT TYLENOL FOR HEADACHE TO GOOD EFFECT. TOOK MEDS PRESCRIBED, WCTM
[2021-01-14 05:37] LABS: International Normalized Ratio 3.07; Prothrombin Time Results 31.1 Sec (9.7-11.5)
--- NOTE | 2021-01-14 05:47 | NUR ---
PT IS A/O OBESE, L AXILLA ABCESSES. PT IS A LIFT TRANSFER, AWAITING SNF PLACEMENT. 3L 02 DURING DAY VIA N/C, CPAP AT HS.
--- NOTE | 2021-01-14 18:36 | NUR ---
SHIFT SUMMARY DEL GOT FLEXERIL THIS MORNING WHICH HELPED WITH HIS MUSCLE SPASMS WITH MOVING HOB. GOT UP TO CHAIR WITH LIFT. BOTTOM STILL REDDENED, CALAZIME APPLIED. INCONTINENT URINE, PADS CHANGED REGULARLY. ARMPIT LEFT SIDE STILL DRAINING SEROSANG FLUID, DR KUSH COCHRAN, WCTM. ON 3L OXYGEN HERE. TOOK MEDS PRESCRIBED, CALL LIGHT IN REACH, WCTM
--- NOTE | 2021-01-15 04:50 | NUR ---
SUMMARY: A/OX4, CALLS APPROPRIATELY AND REMAINS ON BEDREST W/LIFT REQUIRED OOB FOR PARAPLEGIA. TURN SCHEDULE MAINTAINED AND ATTENDS CHANGED PRN FOR FREQ HEAVY INCONTINENT VOIDS. MEPILEX TO BUTTOCKS REMAINS C/D/I AND SCHEDULED MEDS APPLIED TO PANUS AND R.INNER THIGH FOR REDNESS AND YEAST EXCORIATION. L.ARMPIT ABSCESS CONT'S TO HAVE INTERMITTENT SEROSANGUINOUS DRAINAGE W/AREA CLEANSED PRN. CPAP TOLERATED AT HS W/CONT BIOX INTACT. PT OCC DESATS TO 80'S% D/T MOUTH BREATHING AND HE ONLY WEARS NOSE PIECE. NO S/S RESP DISTRESS AND 3L WORN VIA NC WA. PT DENIED PAIN AND ALL OTHER COMPLAINTS. VSS/AFEBRILE AND NO ACUTE CHANGES. SNF PLACEMENT PENDING. WCTM AND REPORT TO DAY RN.
[2021-01-15 05:33] LABS: International Normalized Ratio 2.62; Prothrombin Time Results 26.8 Sec (9.7-11.5)
--- NOTE | 2021-01-15 18:45 | NUR ---
nO MAJOR CHANGES. PT AA&OX4. CHAIRBOUND. CALLS APPROPRIATELT. LCTA ALL FEILDS. DENIES PAIN. APPETITE GOOD. BM TODAY. R AXILLARY ABCESS WITH SEROSANG DRAINAGED. CLEANED THROUGHOUT THE DAY. DRESSING EASILY DISLODGED. WAITING SNF PLACEMENT
--- NOTE | 2021-01-16 05:20 | NUR ---
SHIFT SUMMARY PATIENT ALERT AND ORIENTED. HAD NO COMPLAINTS OF PAIN OR SHORTNESS OF BREATH. PATIENT SLEPT WELL OVERNIGHT. NO ACUTE ISSUES NOTED. BED IN LOWEST POSITION WITH WHEELS LOCKED AND ALARM ON. CALL LIGHT WITHIN REACH. REPORT GIVEN TO ONCOMING RN.
[2021-01-16 05:27] LABS: International Normalized Ratio 2.33
--- NOTE | 2021-01-16 18:33 | NUR ---
NO CLINICAL CHANGES. PT AA&OX4. BEDBOUND. APPETITE GOOD. MOOD APPROPRIATE DENIES PAIN, SOB. AXILLLARY ABCESS DRAINING SEROSANG DRAINAGE. CLEANSED AND PAD PLACED. PT WAITING SNF PLACEMENT. HE HAS NO QUESTIONS OR CONCERNS AT THIS TIME
[2021-01-17 05:13] LABS: International Normalized Ratio 2.66; Prothrombin Time Results 27.2 Sec (9.7-11.5)
--- NOTE | 2021-01-17 05:49 | NUR ---
SUMMARY PT HAD NO NEW ISSUES NOTED. PT HAS SLEPT T/O SHIFT. PT CURRENTLY SLEEPING IN NO DISTRESS. CALL LIGHT IN REACH.
--- NOTE | 2021-01-17 16:27 | NUR ---
PT IS A/OX3,MPLEASANT AND COOPERATIVE, THE PT IS UP WITH MAX ASSIST USEING THE LIFT, THE PT APPEARS TO BE BREATHING EASILY AT REST ON O2, PT DENIED ANY PAIN T/O THE DAY THE PT WAS UP IN THE RECLINER FRO SEVERAL HOURS TODAY. THE PT WAS REPOSITIONED WHILE IN BED CALL LIGHT IN REACH, WILL CONTINUE TO MONITOR AND ASSESS FOR CHANGES
--- NOTE | 2021-01-18 05:25 | NUR ---
SUMMARY NO NEW ISSUES NOTED. PT HAS BEEN PAIN FREE T/O SHIFT. PT HAS BEEN SLEEPING COMFORTABLY T/O SHIFT. PT DENIES N/V. PT CURRENTLY SLEEPING IN NO DISTRESS. CALL LIGHT IN REACH.
--- NOTE | 2021-01-18 05:26 | NUR ---
SUMMARY NO NEW ISSUES NOTED. PT HAS BEEN SLEEPING T/O SHIFT. PT DENIED SOB. PT HAS SLEPT WELL T/O SHIFT. PT CURRENTLY SLEEPING IN NO DISTRESS. CALL LIGHT IN REACH.
[2021-01-18 09:05] LABS: International Normalized Ratio 2.59; Prothrombin Time Results 26.5 Sec (9.7-11.5)
--- NOTE | 2021-01-18 16:43 | NUR ---
SHIFT SUMMARY- PT IS A/O, PLESANT AND COOPERATIVE. HE IS EATING AND DRINKING WELL. USED LIFT FOR PT TO BE UP TO THE CHAIR FOR SEVERAL HOURS THIS AFTERNOON. HE RECIEVED A BED BATH THIS SHIFT. HIS BED IS IN THE LOW POSITON AND CALL LIGHT IS WITIN ALISHA.
[2021-01-19 05:23] LABS: Hematocrit 48.3 % (37.0-53.0); Hemoglobin 15.5 g/dL (13.5-17.5)
[2021-01-19 05:38] LABS: International Normalized Ratio 2.61; Prothrombin Time Results 26.7 Sec (9.7-11.5)
--- NOTE | 2021-01-19 06:45 | NUR ---
SUMMARY NO NEW ISSUES NOTED. PT SLEPT WELL. PT CURRENTLY SLEEPING IN NO DISTRESS. CALL LIGHT IN REACH.
--- NOTE | 2021-01-19 17:11 | NUR ---
PATIENT IS ALERT AND ORIENTED AND COOPERATIVE WITH CARE. HE SAT UP IN THE RECLINER FOR 5 HOURS TODAY. PATIENT IS INCONTINENT OF URINE AT TIMES. HE WAS ABLE TO USE THE URINAL WITH ASSISTANCE. PATIENT HAD A BM TODAY ON THE BEDPAN. WOUND CARE COMPLETED ON THE LEFT AXILLA ABSCESS, SCANT AMOUNT OF DRAINAGE. PATIENT WORKED WITH PT AND OT TODAY. WILL CONTINUE TO MONITOR
--- NOTE | 2021-01-20 02:54 | NUR ---
SHIFT SUMMARY NO ACUTE CHANGES OVERNIGHT. PT REMAIN CONFUSED. SHE YELLS/SCREAM INTERMITTENTLY. SLEPT AFTER MIDNIGHT. PT IS ALERT AND ORIENT TO SELF AND . SHE HAD A 1 MED BROWN LOSE BOWEL MOVEMENT, LINEN WERE CHANGED. FLANNERY STILL IN PLACED, INTACT, PATENT, GRAVITY ON FLOOR. PT IS ON RESTRAINTS R/T BEING IMPULSIVE AND ATTEMPTING TO GET OUT BED. CIWA SCORE FROM 0-1 ASSESSED EVERY 2 HRS. REPORT PAIN, MEDICATED ONCE FOR FENTANYL 25MCG. CALL LIGHT WITHIN REACH. BED IN LOW POSITION.
--- NOTE | 2021-01-20 03:06 | NUR ---
SHIFT SUMMARY NO ACUTE CHANGES OVERNIGHT. PT SLEPT GOOD T/O SHIFT WITH CPAP ON BEDSIDE. PT REMAINS INCONTINENT, ATTENDS IN PLACED. PRESENT EDEMA ON BLE, BLE ELEVATED ON PILLOW. LEFT AXILLA ABSCESS CLEANED WITH SCANT AMT OF DAINAGE. HE HAS BEEN COOPERATIVE, ALERT, ORIENTED AND PLEASANT. BED IN LOW POSITION. CALL LIGHT WITHIN REACH. WILL CONTINUE TO MONITOR PATIENT.
--- NOTE | 2021-01-20 18:04 | NUR ---
NO ACUTE CHANGES AT THIS TIME. PT IS A LIFT TO CHAIR AND TWO TO THREE PERSON ASSIST FOR BED CHANGES OR BATH. PT USES CALL LIGHT APPROPRIATELY DENIES PAIN AT THIS TIME. WILL CONTINUE TO MONITOR.
--- NOTE | 2021-01-21 03:49 | NUR ---
SUMMARY NO NEW CHANGES NOTED. PT HAS BEEN SLEEPING T/O SHIFT. PT CURRENTLY SLEEPING IN NO DISTRESS. CALL LIGHT IN REACH.
[2021-01-21 05:40] LABS: International Normalized Ratio 2.86; Prothrombin Time Results 29.1 Sec (9.7-11.5)
[2021-01-21 05:52] LABS: Albumin, Blood 2.8 g/dL (3.4-5.0); Anion Gap -1 mmol/L (6-16); Blood Urea Nitrogen 16 mg/dL (8-24); Bun/Creatinine Ratio 29.8 (12.0-20.0); CO2, Blood 39 mmol/L (21-32); Calcium, Blood 8.4 mg/dL (8.5-10.1); Chloride, Blood 96 mmol/L (98-108); Creatinine, Blood 0.54 mg/dL (0.60-1.20); Glomerular Filtration Rate >60 (60-); Glucose, Blood 107 mg/dL (70-99); Phosphorus, Blood 3.1 mg/dL (2.5-4.9); Potassium, Blood 4.2 mmol/L (3.5-5.5); Sodium, Blood 134 mmol/L (136-145)
--- NOTE | 2021-01-21 18:32 | NUR ---
PT AOX4 AND COOPERATIVE OF CARE. PT HAS HAD TO ACUTE CHANGES. PT CONTINUES TO NEED LIFT ROOM TO TRANSFER TO CHAIR AND BACK. PT DENIES PAIN AT THIS TIME. PT INCONTENTENT. CONDOM CATH UNABLE TO BE APPLIED. PT CALLS APPROPRIATELY NO DISTRESS NOTED. PT IS TURNED AND REPOSTIONED EVERY COUPLE HOURS. CALL LIGHT WITHIN REACH WILL CONTINUE TO MONITOR.
--- NOTE | 2021-01-22 04:26 | NUR ---
SUMMARY NO NEW ISSUES REPORTED. PT SLEPT T/O SHIFT. PT SLEEPING IN NO DISTRESS. CALL LIGHT IN REACH.
--- NOTE | 2021-01-22 17:33 | NUR ---
SHIFT SUMMARY PT IS AOX4. PT DENIES PAIN, N/V, SOB. PT UP TO CHAIR X1. PT WORKED WITH PT/OT. APPETITE IS GOOD. PLAN IS TO TITRATE O2. PT IS CURRENTLY ON 4 L O2 VIA, DOWN FROM 5 L O2 THIS AM WITH SATS AT 93%. AXILLARY WOUND CLEANED X1 THIS SHIFT. PT DID NOT HAVE ANY VISITORS TODAY. PT IS IN BED, CALL LIGHT IN REACH, LOW POSITION.
--- NOTE | 2021-01-23 04:47 | NUR ---
SUMMARY NO NEW CHANGES. PT SLEPT T/O SHIFT. CALL LIGHT IN REACH.
[2021-01-23 06:19] LABS: Albumin, Blood 2.8 g/dL (3.4-5.0); Anion Gap -1 mmol/L (6-16); Blood Urea Nitrogen 15 mg/dL (8-24); Bun/Creatinine Ratio 25.7 (12.0-20.0); CO2, Blood 38 mmol/L (21-32); Calcium, Blood 8.3 mg/dL (8.5-10.1); Chloride, Blood 98 mmol/L (98-108); Creatinine, Blood 0.58 mg/dL (0.60-1.20); Glomerular Filtration Rate >60 (60-); Glucose, Blood 113 mg/dL (70-99); Potassium, Blood 4.2 mmol/L (3.5-5.5); Sodium, Blood 135 mmol/L (136-145)
[2021-01-23 06:24] LABS: International Normalized Ratio 3.04; Prothrombin Time Results 30.8 Sec (9.7-11.5)
--- NOTE | 2021-01-23 17:27 | NUR ---
PT IS A/OX3, PLEASANT AND COOPEATIVE, THE PT APPEARS TO BE BREATHING EASILY ON O2 @ 4L/MIN, THE PT TODAY DECLINED TO GET UP FROM THE BED AND SIT IN THE RECLINER, THE PT DENIED ANY PAIN TODAY, A WARM COMPRESS WAS APPLIED TO THE PTS LEFT AXILA AREA ABCESS X 2 SO FAR INSTRUCTED BY DR. ROSA THE PT TOLERATED WELL, CALL LIGHT IN REACH, WILL CONTINUE TO MONITOR AND ASSESS FOR CHANGES
--- NOTE | 2021-01-24 04:25 | NUR ---
SHIFT SUMMARY NO ACUTE CHANGES TO REPORT THIS SHIFT, PT HAS SLEPT MOST OF THE NIGHT AND HAS DENIED PAIN OR NEEDS. WEARS CPAP AT NIGHT AND HAS TOLERATED WELL, SATS MAINTAINED. PT CALLS APPROPRIATELY AND MAKES NEEDS KNOWN. ASSESSMENT REMAINS UNCHANGED. STILL AWAITING PLACEMENT. BED IN LOWEST POSITION, CALL LIGHT WITHIN REACH.
--- NOTE | 2021-01-24 18:41 | NUR ---
SHIFT SUMMARY- PT ALERT AND ORINETED. MEDICATED ONCE WITH TYLENOL FOR PAIN. PT REQUESTED DRY SKIN ON HIS FACE BE WASHED AND LOTION BE PLACED ON IT. STAFF DID SO CARFUL NOT TO GET NEAR THE EYES WITH THE LOTION. PT CURRENTLY AWAITING PLACEMENT. THERE IS AN ABCESS UNDER HIS LEFT ARM THAT DRAINS FREQUENTLY WITH THE APPLICATION OF EAT. THE AREA IS RED AND ANGRY IN APPEARANCE AND HARD TO THE TOUCH. THE AREA STARTED BLEEDING THIS AFTERNOON WHEN THE PT WAS ASSISTED TO ROLL ON HIS SIDE FOR A BM. PT HAD A LARGE FORMED BM TODAY WELL. PT IS A LIFT PT 2-3 ASSIST FOR BED MOBILITY. WILL PASS ALL ON IN BEDSIDE REPORT TO NIGHT RN.
[2021-01-25 06:33] LABS: International Normalized Ratio 3.17; Prothrombin Time Results 32.1 Sec (9.7-11.5)
--- NOTE | 2021-01-25 07:14 | NUR ---
SHIFT SUMMARY: NO ACUTE CHANGES THIS SHIFT, VSS, NO REPORT OF PAIN OR DISCOMFORT. INC. OF BLADDER AND BOWEL. MEPILEX IS PLACED ON COCCYX.
--- NOTE | 2021-01-25 18:34 | NUR ---
SHIFT SUMMARY- PT ALERT ANDORIENTED AND IS ABLE TO DORECT HIS CARE NEEDS. CALLED DR BEAVERS THIS EVENING THE PT INR WAS 3.17 ORDER RECIEVED TO GO AHEAD AND GIVE THE 4 MG OF COUMADIN TONIGHT. PT HAD A SURGICAL CONSULT TODAY, DR OREILLY CAME AND VISUALIZED THE ABCESS UNDER HIS ARM THAT IS DRAINING. AREA CLEANED AND DRIED PER DR ROSA PLACED MICONOZOLE POWDER ON THE REDENED AREA ABD PAD PLACED TO KEEP THE AREA DRY. PT HAS DENIED ANY PAIN TODAY. NO IV ACCESS NEEDED AT THIS TIME PT TO START PO ABX THIS EVENING FOR SKIN INFECTION UNDER THE ARM. PT IS AWARE. PT IN BED CALL LIGHT IN REACH, NO S&S OF DISTRESS NOTED. WILL PASS ALL ON TO NIGHT RN IN BEDSIDE REPORT.
--- NOTE | 2021-01-26 06:26 | NUR ---
SHIFT SUMMARY: NO ACUTE CHANGES. VSS, INC. OF LARGE AMOUNTS OF URINE. ABCESS UNDER LEFT AXILLA IS CLEANS AND ANTIFUNGAL POWDER WAS ADMIN PER NOV. DRAINAGE IN NOTABLY DECREASED THIS SHIFT.
[2021-01-26 09:58] LABS: International Normalized Ratio 3.11; Prothrombin Time Results 31.5 Sec (9.7-11.5)
--- NOTE | 2021-01-26 17:23 | NUR ---
PATIENT ALERT AND ORIENTED. BEDBOUND/LIFT TO BSC. INCONTINENT. NO ACUTE CHANGES TO REPORT ON AT THIS TIME. AWAITING PLACEMENT FOR DISCHARGE.
--- NOTE | 2021-01-27 03:30 | NUR ---
SHIFT SUMMARY: VSS. AFEB. 02 97% ON 4L VIA NC WHILE AWAKE, 90% ON 10L 02 BLEED IN TO CPAP WHILE ASLEEP. L AXILLA W/ SERO SANGUINOUS DISCHARGE IN MOD AMTS. ABSORBENT DRESSING APPLIED. PO ABT ADMINISTERED PER ORDERS. NO ACUTE OVERNIGHT EVENTS. WCTM.
--- NOTE | 2021-01-27 17:11 | NUR ---
SUMMARY PT RESTING IN BED WATCHING TV, PT HAS BEEN PLEASANT AND COOPERATIVE WITH CARE T/O THE DAY, PT UP TO THE CHAIR USING THE LIFT, PT INCONTINENT, ATTENDS IN PLACE, PT ABLE TO USE THE URINAL OCC, L AXILLA WOUND DRAINING SEROSANGUINEOUS FLUID, NO COMPLAINTS, VSS, WILL CONT TO MONITOR
--- NOTE | 2021-01-28 03:29 | NUR ---
SHIFT SUMMARY: VSS. AFEB. O2 97% ON 4L VIA NC WHILE AWAKE AND 4.5-10L 02 BLEED IN TO CPAP WHILE ASLEEP. LSCTA W/ DIM BASES. OCCASIONAL COUGH PRODUCING WHITE FROTHY SPUTUM. RESPS EVEN, NON-LABORED, SHALLOW, EXERTIONAL DYSPNEA. DENIES PAIN. MOD AMT OF SEROSANGUINOUS DRAINAGE FROM L AXILLA ABSCESS. AREA IS TENDER TO TOUCH. ABSORBENT DRESSING APPLIED. ANTIFUNGAL TO FOLDS. AAOX4. COMMUNICATES NEEDS. NO ACUTE OVERNIGHT EVENTS. WCTM.
[2021-01-28 05:44] LABS: International Normalized Ratio 3.2; Prothrombin Time Results 32.4 Sec (9.7-11.5)
--- NOTE | 2021-01-28 17:19 | NUR ---
SUMMARY PT SITTING UP IN BED WATCHING TV, PT HAS BEEN PLEASANT AND COOPERATIVE WITH CARE T/O THE DAY, UP TO THE CHAIR WITH THE LIFT FOR LUNCH, PT BACK TO BED AFTER LUNCH AND HAD A LARGE BM, PT OCC ABLE TO USE THE URINAL WITH ASSISTANCE, VSS, NO COMPLAINTS, WILL CONT TO MONITOR
--- NOTE | 2021-01-29 04:29 | NUR ---
SHIFT SUMMARY: AAOX4. CALLS APPROPRIATELY. VSS. AFEB. 02 WNL ON 4L WHILE AWAKE AND 10L BLEED IN TO CPAP WHILE ASLEEP. RHONCHI AUSCULTATED TO B LUNGS. ENCOURAGED TCDB. RESPS EVEN, NON-LABORED. BASELINE SOB W/ EXERTION. SHALLOW RESPS. INFREQUENT COUGH PRODUCING SMALL AMTS OF WHITE, FROTHY SPUTUM. L AXILLA ABSCESS CLEANSED AND DRESSED, MOD AMT OF SEROSANG DRAINAGE PRODUCED WHEN PRESSURE APPLIED. NO ACUTE OVERNIGHT EVENTS. WCTM.
[2021-01-29 05:16] LABS: International Normalized Ratio 2.87; Prothrombin Time Results 29.2 Sec (9.7-11.5)
--- NOTE | 2021-01-29 19:05 | NUR ---
ASSUMED CARE RECEIVED REPORT FROM REDE YATES. PT RESTING, IN NO ACUTE DISTRESS. CALL LIGHT, POSSESSIONS IN REACH, PT SITTING IN CHAIR. DENIES NEEDS.
--- NOTE | 2021-01-29 19:23 | NUR ---
SHIFT SUMMARY: NO ACUTE CHANGES TO REPORT THSI SHIFT. PT A&O; CALM AND COOPERATIVE WITH CARE. MEDICATED FOR MIRZA PAIN PER EMAR. O2 @ 4L. LIFT PATIENT. MEDICALLY STABLE; AWAITING DISCHARGE; PT/OT RECOMMEND SNF. REPORT GIVEN TO ONCOMING RN.
[2021-01-30 05:25] LABS: International Normalized Ratio 2.67; Prothrombin Time Results 27.3 Sec (9.7-11.5)
--- NOTE | 2021-01-30 07:05 | NUR ---
LOG TRUCK DRIVER SUMMARY PT RESTING, IN NO ACUTE DISTRESS. RESPS E/U. VS REVIEWED, WNL. NO ACUTE CHANGES IN CONDITION TO REPORT OVERNIGHT. NO C/O PAIN. NO ACUTE NEEDS ASSESSED AT THIS TIME. REPORT GIVEN TO REED BROWN.
--- NOTE | 2021-01-30 18:06 | NUR ---
SHIFT SUMMARY: NO ACUTE EVENTS TO REPORT THIS SHIFT. PT A&O; CALM AND COOPERATIVE WITH CARE. NO C/O PAIN THIS SHIFT. O2 @ 4L. LIFT PATIENT; 3-ASSIST WITH BED TURNS. MEDICALLY STABLE; AWAITING PLACEMENT. WCTM.
[2021-01-31 07:09] LABS: International Normalized Ratio 2.28; Prothrombin Time Results 23.5 Sec (9.7-11.5)
--- NOTE | 2021-02-01 04:56 | NUR ---
TRADITIONAL CHINESE HERBALIST SUMMARY NO ACUTE CHANGES THIS SHIFT. PT AAOX4 AND VERY PLEASANT. DENIES PAIN, SOB, N/V. HAS BEEN USING CPAP THROUGH THE NIGHT MAINTAINING O2 SATS IN 90'S. LITTLE TO NO DRAINAGE NOTED FROM LEFT AXILLA WOUND, ANTIFUNGAL CREAM APPLIED. PT STILL INCONTINENT, ATTENDS CHANGED NEEDED. VSS, WILL CONTINUE TO MONITOR.
[2021-02-01 06:18] LABS: International Normalized Ratio 2.13
--- NOTE | 2021-02-01 17:57 | NUR ---
PT IS A/O X4, AND ABLE TO MAKE NEEDS MET. PT IS ON 4 L 02 VIA NC, AND CAN HAVE DYSPNEA DUE TO REPOSTIONING. PT IS I/C OCCASIONALLY, BUT WILL CALL FOR A URINAL/BP. THE PT CURRENTLY USES A LIFT FOR TRANSFERS AND IS NOW UP IN HIS CHAIR. VSS AND CALL LIGHT IS WITHIN THE PT'S REACH.
[2021-02-02 05:35] LABS: International Normalized Ratio 2.3; Prothrombin Time Results 23.7 Sec (9.7-11.5)
--- NOTE | 2021-02-02 05:54 | NUR ---
DIRECTOR COUNSELING BUREAU SUMMARY NO ACUTE CHANGES THIS SHIFT. PT AAOX4 AND PLEASANT. ATTENDS CHANGED NEED, PT HEAVY WETTER. DENIES PAIN, SOB, N/V. REPOSITIONED ALLOWED BY PT PT UNABLE TO TOLERATE IT VERY WELL. AWAITING PLACEMENT. VSS, WILL CONTINUE TO MONITOR.
--- NOTE | 2021-02-02 16:28 | NUR ---
PT IS A/OX3, PLEASANT AND COOPERATIVE. THE PT IS A MAXIUM ASSIST, UP WITH CEALING LIFT TO THE CHAIR, THE PT IS ON O2 @ 4L/MIN, THE PT REPORTS A SHARP PAIN OCCASIONALY IN THE LEFT AXILLARY AREA THAT IS TOLERABLE, THE PT DENIES ANY OTHER PAIN SO FAR THIS SHIFT, THE PT WAS UP IN THE RECLINER TODAY FROM 1130 TO 1530. THE PHYSICAL THERAPIST WORKED WITH THE PT TODAY, PT APPEARS TO BE COMFORTABLE AT THIS TIME, CALL LIGHT IN REACH, WILL CONTINUE TO MONITOR AND ASSESS FOR CHANGES
[2021-02-03 05:08] LABS: International Normalized Ratio 2.32; Prothrombin Time Results 23.9 Sec (9.7-11.5)
--- NOTE | 2021-02-03 06:41 | NUR ---
SHIFT SUMMARY PATIENT ALERT AND ORIENTED. HAD NO COMPLAINTS OF PAIN OR SHORTNESS OF BREATH OVERNIGHT. NO ACUTE ISSUES NOTED. BED IN LOWEST POSITION WITH WHEELS LOCKED AND ALARM ON. CALL LIGHT WTIHIN REACH. REPORT GIVEN TO ONCOMING RN.
--- NOTE | 2021-02-03 17:39 | NUR ---
PT HAS HAD NO ACUTE CHANGES. PT UP TO CHAIR WITH LIFT AND CALLS APPROPRIATELY. NO DISTRESS NOTED AND PT COOPERATIVE OF ALL CARE. PT HAS BEEN USING URINAL OFF AND ON WITH INCONTENCE WELL. WILL CONTINUE TO MONITOR.
--- NOTE | 2021-02-04 06:27 | NUR ---
SUMMARY PT WITH CPAP AND 10L BLEED IN TONIGHT AND STILL OCC DESATS MID 80'S.RT AWARE THIS IS ONGOING AND IS WORKING WITH MASK FITTING.
[2021-02-04 11:34] LABS: International Normalized Ratio 2.04; Prothrombin Time Results 21.2 Sec (9.7-11.5)
--- NOTE | 2021-02-04 18:14 | NUR ---
NO ACUTE CHANGES PT AOX4 AND COOPERATIVE OF CARE. LIFT FROM BED TO CHAIR. CALLS APPROPRIATEY. PT IS INCONTENENT, BUT WILL USE URINAL SOMETIMES. PT IS UP IN CHAIR WATCHING TV WILL CONTINUE TO MONITOR WITH CALL LIGHT IN REACH.
--- NOTE | 2021-02-05 04:43 | NUR ---
SHIFT SUMMARY AOX4. RT CHANGED CPAP MASK OUT LAST NIGHT, PTS HOME CPAP POWERED OFF 2X BY ITSELF & SPO2 DROPPED TO 65-70'S, PT AGREED TO WEAR HOSPITAL CPAP. CONT PULSE OX STILL ALARMS OCCASIONALL FOR SPO2 @85-87% c 10L BLEED IN. RT INCREASED O2 TO 15L & SPO2 @94%. L AXILLARY WOUND HAD MODERATE AMOUNT RED/SANGUINOUS DRAINAGE, CHANGED DRESSING. PT TURNED & REPOSITIONED TOLERATED, VERY PAINFUL c MOVEMENT. +2 EDEMA BLE. DENIES N/V, PAIN, SOB. AWAITING SAFE DC PLAN. CALL LIGHT IN REACH & PT ABLE TO MAKE NEEDS KNOWN.
[2021-02-05 05:30] LABS: International Normalized Ratio 1.88; Prothrombin Time Results 19.6 Sec (9.7-11.5)
--- NOTE | 2021-02-05 16:42 | NUR ---
NO ACUTE CHANGES. PT COOPERATIVE OF CARE. LIFT PT TO CHAIR AND BACK TO BED. PT CALL APPROPRIATELY. NO DISTRESS NOTED AT THIS TIME WILL CONTINUE TO MONITOR.
--- NOTE | 2021-02-06 02:55 | NUR ---
HR CONT PULSE OX HAS ALARMED DAVY CORNELIUS FOR A BRIEF HR 33-36, THEN HR WILL INCREASE BACK TO 90'S. HOWEVER HR SUSTAINED LOW 40'S FOR AWHILE ON CONT PULSE OX, BEFORE BEING AROUSED & HR INCREASING TO 90'S. INFORMED DR GRANGER & HE ORDERED A TELE TO MONITOR MORE CLOSELY.
--- NOTE | 2021-02-06 05:47 | NUR ---
SHIFT SUMMARY TELE PLACED LAST NIGHT SINCE HR KEPT DROPPING TO 33-40'S PER CONT PULSE OX, READ PREVIOUS NOTE. INFORMED BY LACE MENDER @1748 PT HAD A FEW BEATS OF V TACH @0330 & 0430-SEE RHYTHM STRIPS. TELE CURRENTLY NSR @98. INFORMED DR GRANGER & HE ORDERED MAG & CMP LABS THIS AM. REST OF VITALS STABLE. SPO2 >90% c 15L O2 BLEED INTO CPAP. DENIES PAIN, N/V, SOB. CHANGED & REPOSITIONED, POWDER APPLIED TO FOLDS, BANDAGES CHANGED. HAD LRG BROWN BM. INCONT/CONT OF URINE. AWAITING SAFE DC PLAN. CALL LIGHT IN REACH & PT ABLE TO MAKE NEEDS KNOWN.
[2021-02-06 05:50] LABS: International Normalized Ratio 2.12; Prothrombin Time Results 21.9 Sec (9.7-11.5)
[2021-02-06 06:03] LABS: Alanine Aminotransfer (ALT/SGP 18 U/L (12-78); Albumin, Blood 2.9 g/dL (3.4-5.0); Albumin/Globulin Ratio 0.6 (0.8-1.8); Alk Phos 72 U/L (50-136); Anion Gap 1 mmol/L (6-16); Aspartate Aminotrans (AST/SGOT 10 U/L (12-37); Bilirubin, Total 0.5 mg/dL (0.1-1.0); Blood Urea Nitrogen 15 mg/dL (8-24); Bun/Creatinine Ratio 29.3 (12.0-20.0); CO2, Blood 39 mmol/L (21-32); Calcium, Blood 8.6 mg/dL (8.5-10.1); Chloride, Blood 96 mmol/L (98-108); Creatinine, Blood 0.51 mg/dL (0.60-1.20); Globulin, Blood 4.6 g/dL (2.2-4.0); Glomerular Filtration Rate >60 (60-); Glucose, Blood 128 mg/dL (70-99); Magnesium, Blood 2.1 mg/dL (1.6-2.4); Potassium, Blood 4.3 mmol/L (3.5-5.5); Sodium, Blood 136 mmol/L (136-145); Total Protein, Blood 7.5 g/dL (6.4-8.2)
--- NOTE | 2021-02-06 17:59 | NUR ---
SHIFT SUMMARY PT ALERT AND ORIENTED, BARIATRIC AND LIFT PATIENT. PT DENIES PAIN. SOB ON EXERTION. PT IS ON 4L OF O2 AND USES CPAP AT NIGHT. SATS ABOVE 90S. PT RECEIVED BREATHING TX TODAY. PLACED CREAM AND POWDER ON FOLDS AND GROIN AREA. TALKED TO ABOUT THE PT EPISODES OF VTACH LAST NIGHT AND ASYMPTOMATIC. DC'D TELE PER . PT DENIES ANY CP. BED IS IN THE LOWEST POSITION AND CALL LIGHT WITHIN REACH
--- NOTE | 2021-02-07 06:08 | NUR ---
SHIFT SUMMARY AOX4. CONT PULSE OX ALARMED ROUGHLY 6X OR MORE FOR HR DROPPING TO 31-45 & SUSTAINING MID 40'S FOR 1MIN & THEN INCREASING BACK TO 90'S. SPO2 >90% ON CPAP T/O NIGHT c O2 BLEED IN. REST OF VITALS STABLE. PT DENIES PAIN, N/V OR DYSPNEA. CHANGED & REPOSITIONED. AWAITING PLACEMENT. CALL LIGHT IN REACH & PT ABLE TO MAKE NEEDS KNOWN.
[2021-02-07 06:29] LABS: International Normalized Ratio 2.22; Prothrombin Time Results 22.9 Sec (9.7-11.5)
--- NOTE | 2021-02-07 17:03 | NUR ---
THE PATIENT HAS HAD NO ACUTE CHANGES TO REPORT OF AT THIS TIME. HE IS STILL AWAITING PLACEMENT TO DISCHARGE. CALL LIGHT IS WITHIN REACH.
--- NOTE | 2021-02-08 03:52 | NUR ---
SHIFT SUMMARY PATIENT USES CPAP AT NIGHT WITH 6L BLEED. PATIENT O2 STATS DROP T/O THE SHIFT FROM 92% DOWN INTO THE 80'S AND EVEN 60'S AT TIMES AND BACK INTO THE LOW 90'S. RT IN TO ADJUST MASK AND CHECK OXYGEN. ON 4L O2 NC WHEN OFF HIS CPAP. DENIES PAIN AND N/V. AXOX 4 AND BEDREST. MORBIDLY OBESE. TAKES MEDICATION WHOLE WITH WATER. NO IV ACCESS. COOPERATIVE WITH CARE. CALL LIGHT IN REACH. BED IN LOWEST POSITION. WILL CONTINUE TO MONITOR UNTIL DAY SHIFT NURSE ASSUMES CARE.
[2021-02-08 05:36] LABS: International Normalized Ratio 2.12; Prothrombin Time Results 21.9 Sec (9.7-11.5)
--- NOTE | 2021-02-08 18:13 | NUR ---
SHIFT SUMMARY PT IS A/OX4. PATIENT DENIES PAIN, NAUSEA, VOMITING. SOB ON EXERTION. SATTING IN THE LOW 90S ON 4 LITER VIA NC. PATIENT IS PLEASANT AND COOPERATIVE WITH CARE. PT WAS INCONTINENT DURING SHIFT AND WILL CALL APPROPRIATELY. NO ACUTE CHANGES DURING SHIFT. BED IN LOWEST POSITION. VITAL SIGNS REVIEWED. CALL LIGHT WITH IN REACH.
--- NOTE | 2021-02-08 18:29 | NUR ---
BANKING SERVICES CLERK DOC REVIEW THIS RN ASSESSED THE PT. THIS RN REVIEWED AND AGREES WITH THE STUDENT NURSE'S DOCUMENTATION FOR THIS SHIFT.
--- NOTE | 2021-02-09 04:07 | NUR ---
SHIFT SUMMARY PATIENT HAD NO ACUTE CHANGES OBSERVED. AXOX 4 AND BEDREST. MORBIDLY OBESE. TAKES MEDICATION WHOLE WITH WATER. INCONTINENT T/O SHIFT ONLY USING CALL LIGHT AFTER INCONTINENCE. THREE PERSONS TO CHANGE ATTENDS. LIFT PATIENT. NO IV ACCESS. ON 4L O2 NC AND USES CPAP AT NIGHT WITH 6L BLEED IN. PATIENT ON CONTINUOUS PULSE OXIMETRY STATING FROM LOW 90'S DOWN TO 60'S AND BACK TO 90'S. PATIENT SLEEPS THROUGH PULSE OXIMETRY ALARMS. MASK READJUSTED NEEDED. DENIES PAIN AND N/V. VSS/AFEBRILE. CALL LIGHT IN REACH. BED IN LOWEST POSITION. WILL CONTINUE TO MONITOR UNTIL DAY SHIFT NURSE ASSUMES CARE.
[2021-02-09 05:29] LABS: International Normalized Ratio 2.12; Prothrombin Time Results 21.9 Sec (9.7-11.5)
--- NOTE | 2021-02-09 18:13 | NUR ---
SHIFT SUMMARY PT IS A&O AND ABLE TO MAKE NEEDS KNONW. NO ACUTE CHANGES TO REPORT THIS SHIFT. PT HAS BEEN PLESANT AND ACCEPTING OF CARE. HE RECEIVED A BED BATH IN [facility]. IS CURENTLY IN CHAIR FINISHING DINNER AND WATCHING TV. CALL LIGHT W/IN REACH. DENIES P/N/V.
--- NOTE | 2021-02-10 04:27 | NUR ---
SHIFT SUMMARY ASSUMED CARE OF PT AT 1900. HEART SOUNDS DISTANT. LUNG SOUNDS DIMINISHED. PT ON 4L NC, PT WORE HIS CPAP T/O THE NIGHT AND DESATURATED INTO THE 60S BEFORE BEING AWOKEN, WHICH BROUGHT HIS SATURATIONS BACK TO THE 90S. PT ABCESS IS NOT LEAKING BUT STILL HURTS. PT FOLDS ARE BETTER FROM WHEN THIS NURSE SAW THEM BEFORE. PT HAS SMALL SKIN TEAR ON R BUTTOCK. PT WAS INCONTIENT OF URINE. PT HAD SMALL INCONTINENT BM. NO ACUTE EVENTS. CALL LIGHT IN REACH, BED IN LOWEST POSTION.
[2021-02-10 05:29] LABS: International Normalized Ratio 2.12; Prothrombin Time Results 21.9 Sec (9.7-11.5)
--- NOTE | 2021-02-10 18:08 | NUR ---
SHIFT SUMMARY PT IS A&O AND ACCEPTING OF CARE. PT TRIES TO ASSIT WITH REPOSITIONING. PT WAS UP IN CHAIR FOR PART OF THE SHIFT AND IS CURRETLY BACK IN BED. UPDATED PICTURES OF THE COCCYS AND L. AXILLARY PLACED IN THE CHART. NO ACUTE CHANGES TO REPORT THIS SHIFT. PT FINISHING DINNER AND WILL CONTINUE TO MONITOR UNTIL SHIFT CHANGE.
--- NOTE | 2021-02-11 04:32 | NUR ---
SHIFT SUMMARY ASSUMED CARE OF PT AT 1900. PT IS A/OX4. HEART SOUNDS DISTANT. LUNG SOUNDS DIMINISHED. PT SATURATIONS DECRESED TO 75% DURING THE NIGHT BUT WOULD COME BACK UP TO 90% WHEN AWAKING THE PATIENT. THIS HAPPEND MULTIPLE TIMES DURING THE NIGHT. PT WAS INCONTIENT OF STOOL AND URINE. NO ACUTE EVENTS. CALL LIGHT IN REACH, BED IN LOWEST POSTION.
--- NOTE | 2021-02-11 17:23 | NUR ---
SHIFT SUMMARY PT PLEASANT & APROPRIATE. REPORTS FEELING TIRED TODAY AFTER ACTIVITY YESTERDAY. DENIES NEEDS. EATING, DRINKING, & INCONT OF URINE.
--- NOTE | 2021-02-12 04:25 | NUR ---
SHIFT SUMMARY ASSUMED CARE OF PT AT 1900. PT IS A/OX4. HEART SOUNDS DISTANT. LUNG SOUNDS DIMINISHED, PT ON 4L NC WHILE AWAKE AND 6L WITH CPAP. PT CONTINUED TO DESATURATE INTO THE 70S WHILE SLEEPING BUT WILL JUMP BACK UP TO THE 90S WHEN AWOKEN. PT WAS INCONTINENT OF URINE AND STOOL. PT HAS NO NEW COMPLAINTS. HIS SKINN IS LOOKING MUCH BETTER TODAY. CALL LIGHT IN REACH, BED IN LOWEST POSTION.
--- NOTE | 2021-02-12 11:38 | NUR ---
MISSING BELONGINGS. PATIENT REPORTS MISSING A "BACKPACK WITH MY WALLET, 2 PAIRS OF SWEATPANTS, AND DIAPERS IN IT" SINCE ADMISSION. MD AWARE. TOOL OPERATOR NOTIFIED. PATIENT ADVOCATE NOTIFIED AND HAS PATIENT CONTACT INFORMATION IN CASE BELONGINGS ARE LOCATED POST ADMISSION. PATIENT STATES FAMILY DID NOT TAKE HIS BELONGINGS HOME.
--- NOTE | 2021-02-13 04:25 | NUR ---
SHIFT SUMMARY ASSUMED CARE OF PT AT 1900. PT IS A/OX4. HEART SOUNDS DISTANT, LUNG SOUNDS DIMINISHED. PT ON 4L NC. PT WORE CPAP DURING THE NIGHT WITH A 6L BLEED IN. PT DID NOT SET OFF THE PULSE OX MUCH THIS NIGHT, SATURATIONS JUMPED FROM 74% TO 96%. PT WAS INCONTIENT T/O THE NIGHT. CALL LIGHT IN REACH, BED IN LOWEST POSITION.
--- NOTE | 2021-02-14 04:33 | NUR ---
JUNIOR MECHANICAL ENGINEER SUMMARY PT A/O X4. SLEPT WELL TONIGHT. CONTINUES TO USES CPAP AT NIGHT WITH 6L BLEED IN. PT HAS BEEN SATTING MOSTLY IN THE MID 90S, HOWEVER PT DOES DESAT TO THE LOW TO MID 80'S AT TIMES AND COMES RIGHT BACK UP TO THE 90'S. DENIES SOB, NAUSEA, PAIN. INCONTIENT TO BLADDER, ATTENDS IN PLACE. VSS, NO ACUTE CHANGES. CALL LIGHT WITHIN REACH. WILL CONTINUE TO MONITOR.
[2021-02-14 05:56] LABS: International Normalized Ratio 2.18; Prothrombin Time Results 22.5 Sec (9.7-11.5)
--- NOTE | 2021-02-14 17:55 | NUR ---
NO ACUTE CHANGES THIS SHIFT. PATIENT UP TO CHAIR FOR MOST OF THE DAY, LIFT USED FOR TRANSFER. A/OX4, ABLE TO MAKE NEEDS KNOWN. YEAST RASH IMPROVING WITH FUNGAL POWDER. TOLERATING REGULAR DIET. INCONTIENT OF BOWEL/BLADDER, ATTENDS IN PLACE. UNABLE TO MOVE R LEG, WEAKNESS IN ALL OTHER EXTREMITIES. VSS, ON 4LO2. CPAP AT [facility] WITH 6LO2 BLEED IN. CONTINUES TO AWAIT PLACEMENT.
--- NOTE | 2021-02-15 04:21 | NUR ---
SHIFT SUMMARY PT HAD AN UNEVENTFUL NIGHT. SLEPT THROUGH MUCH OF THE NIGHT. CPAP WITH 6 L BLEEDIN ON WHILE SLEEPING. PT'S HEART RATE DOES DIP DOWN INTO THE 30'S INTERMITTENTLY AND THEN COMES RIGHT BACK UP INTO THE 90'S. PER REPORT THIS HAS BEEN CHRONICALLY HAPPENING. IT APPEARS IF OUR CONT OX MACHINES ARE NOT GETTING ACCURATE READINGS. PT IS A HEAVY WETTER. EXTRA PADS PLACED TO PREVENT FULL BED CHANGES. ANTIFUNGAL CREAM AND POWDER APPLIED TO LILIA AREA AND PANNUS. VITAL SIGNS STABLE. PT CONTINUES TO AWAIT PLACEMENT. WILL CONTINUE TO MONITOR.
--- NOTE | 2021-02-15 16:48 | NUR ---
NO ACUTE CHANGES THIS SHIFT. PATIENT CONTINUES TO AWAIT PLACEMENT. UP TO CHAIR WITH LIFT. MEPILEX TO REDNESS ON COCCYX REMAINS C/D/I. A/OX4, PLEASANT AND COOPERATIVE WITH CARE. CALLS APPROPRIATELY FOR ASSISTANCE. 4LO2 VIA NC TO MAINTAIN SATS. 6LO2 WITH CPAP AT [facility].
--- NOTE | 2021-02-16 04:56 | NUR ---
SHIFT SUMMARY NO ACUTE CHANGES THIS EVENING. REDNESS TO LILIA AREA/PANNUS FOLDS IMPROVING. ANTIFUNGAL CREAM AND POWDER APPLIED. PT WORE CPAP W/ 6 L BLEEDIN WHILE SLEEPING. 4 L VIA NC WHILE AWAKE. PT PLEASANT AND COOPERATIVE. CONTINUES TO AWAIT PLACEMENT. VITAL SIGNS STABLE. WILL CONTINUE TO MONITOR.
--- NOTE | 2021-02-16 18:21 | NUR ---
SHIFT SUMMARY NO ACUTE CHANGES THIS SHIFT. PT A/O X4; PLEASANT AND COOPERATIVE WITH CARE. CURRENTLY ON 4 LITERS O2 AND ON 6 LITERS BLEED IN THROUGH A CPAP WHILE SLEEPING. VSS. UP IN THE CHAIR FOR DINNER WITH HIS CALL LIGHT IN REACH.
--- NOTE | 2021-02-17 03:38 | NUR ---
SHIFT SUMMARY PATIENT HAD NO ACUTE CHANGES OBSERVED. AXOX 4 AND BEDREST. ON 4L O2 NC AND 6-10L O2 BLEED WITH CPAP. STATING IN LOW TO MID 90'S AND WILL DESTAT DOWN TO 70'S AND BACK UP USUALLY WITH MASK FITTING ADJUSTMENT. ON CONTINUOUS PULSE OXIMETRY. VSS/AFEBRILE. DENIES PAIN AND N/V. FOUR PERSON ASSIST FOR ATTENDS CHANGE AND LIFT SHEET CHANGE. PATIENT IN CHAIR AT SHIFT CHANGE. CALL LIGHT IN REACH. BED IN LOWEST POSITION. WILL CONTINUE TO MONITOR UNTIL DAY SHIFT NURSE ASSUMES CARE.
[2021-02-17 05:09] LABS: International Normalized Ratio 2.23
--- NOTE | 2021-02-17 16:01 | NUR ---
SHIFT SUMMARY NO ACUTE CHANGES TO PRESENT THIS SHIFT. PT CONTINUES TO WAIT PLACEMENT. MORBIDLY OBESE FUNCTIONAL PARAPLEGIC. PT REMAINS IN RECLINER CHAIR, SINCE BREAKFAST; TX VIA LIFT. NO C/O, VSS; SEE CHART. PLEASANT AND CO-OP WITH CARE. ABLE TO MAKE NEEDS KNOWN. 3+ EDEMA TO BLE'S; ELEVATED WITH PILLOWS IN BED AND IN CHAIR.
--- NOTE | 2021-02-18 03:07 | NUR ---
SHIFT SUMMARY PATIENT HAD NO ACUTE CHANGES OBSERVED. AXOX 4 AND BEDREST. ON 4L O2 NC AND 6-10L BLEED FOR CPAP. PATIENT DESTATS INTO THE LOW 80'S AND RETURNS TO LOW TO MID 90'S. RT IN TO ADJUST MASK AND OXYGEN NEEDED. DENIES PAIN AND N/V. AFEBRILE. CALL LIGHT IN REACH. BED IN LOWEST POSITION. WILL CONTINUE TO MONITOR UNTIL DAY SHIFT NURSE ASSUMES CARE.
--- NOTE | 2021-02-18 16:27 | NUR ---
SHIFT SUMMARY NO ACUTE CHANGES TO PRESENT THIS SHIFT. PT CONTINUES TO WAIT PLACEMENT. A&O, FUNCTIONAL PARAPLEGIC. BED BATH GIVEN THIS AM AND PT THEN ASSISTED TO RECLINER AT BS VIA LIFT. PT HAS REMAINED IN CHAIR AGAIN THRU OUT THE DAY. CALL LT IN REACH. ABLE TO MAKE NEEDS KNOWN. CONTINENT AND INCONTINENT OF URINE. ATTENDS CHANGED NEEDED. PT CALLS FOR URINAL AT TIMES WELL. DENIES FURTHER NEEDS AT THIS TIME.
--- NOTE | 2021-02-19 03:32 | NUR ---
SHIFT SUMMARY PATIENT HAD NO ACUTE CHANGES OBSERVED. AXOX 4 AND BEDREST. ON 6L O2 NC AND 8-10L O2 BLEED FOR CPAP. PATIENT DESTATS T/O SHIFT FROM 92% DOWN TO 78% AND BACK. PATIENT MASK LEAKS WHEN IT DROPS DOWN ON FACE AND READJUSTED TO BRING 02 STATS BACK UP TO LOW TO MID 90'S. ON CONTINUOUS PULSE OXIMETRY. DENIES PAIN AND N/V. VSS/AFEBRILE. CALL LIGHT IN REACH. BED IN LOWEST POSITION. WILL CONTINUE TO MONITOR UNTIL DAY SHIFT NURSE ASSUMES CARE.
--- NOTE | 2021-02-19 17:53 | NUR ---
SHIFT SUMMARY PATIENT ALERT AND ORIENTED THIS SHIFT. PATIENT REMAINS IN BED THROUGHOUT THIS SHIFT. PATIENT FRIENDLY AND COOPERATIVE WITH CARE. PATIENT WORKED WITH PHYSICAL THERAPY THIS AM. NO ACUTE CHANGES THIS SHIFT. PATIENT CURRENTLY SITTING UP IN BED EATING DINNER.
--- NOTE | 2021-02-20 04:49 | NUR ---
SHIFT SUMMARY NO ACUTE CHANGES THIS SHIFT, NO C/O ANY KIND, SLEPT T/O THIE NIGHT & SLEEPING AT THIS TIME, CALL LIGHT IN REACH, WILL CONT TO MONITOR UNTIL REPORT GIVEN TO DAY RN.
[2021-02-20 05:52] LABS: International Normalized Ratio 2.25; Prothrombin Time Results 23.2 Sec (9.7-11.5)
--- NOTE | 2021-02-20 15:23 | NUR ---
PATIENT CONTINUES TO AWAIT HERE FOR PLACEMENT IN FACILITY. VITALS STABLE. BEDBOUND AT BASELINE. DENIES PAIN AND DISCOMFORT. SMALL RED OPENING TO MID-PANUS; NYSTATIN CREAM APPLIED. NO ACUTE CHANGES TO REPORT AT THIS TIME. PATIENT SLEEPING COMFORTABLY IN HIS BED WITH CALL LIGHT IN REACH.
--- NOTE | 2021-02-20 23:05 | NUR ---
PT ON CPAP SLEEPING AT 10LO2. O2 SAT DOWN TO 70S AND 80S INTERMITTENTLY. RT NOTIFIED AND ASKED TO COME AND MAKE SURE CPAP MASK IS APPLIED AND WORKING PROPERLY. RT STATES THIS IS NORMAL FOR THIS PT. ADVISED TO TURN UP 02. 02 UP TO 12L AT THIS TIME. WILL CONTINUE TO MONITOR.
--- NOTE | 2021-02-21 01:30 | NUR ---
PT ON 12LO2 VIA CPAP. O2 SATURATIONS DROPPING TO MID 70S-LOW 80S INTERMITTENTLY. RESPIRATORY THERAPY NOTIFIED. RT STATES THIS IS PT NORMAL. 02 INCREASED TO 15LO2 VIA CPAP. WILL CONTINUE TO MONITOR.
--- NOTE | 2021-02-21 04:36 | NUR ---
FISH FROG OR OYSTER FARMER SUMMARY PT A/O X 3-4, FULL CODE. AWAITING PLACEMENT. PT SLEPT T/O MOST OF SHIFT. HE WAS ON CPAP 10LO2 BUT WAS DESATTING DOWN TO LOW 70S. RT NOTIFIED, SEE PREVIOUS NOTES. PT CURRENTLY DOING WELL ON 15LO2 CPAP. INCONTINENT BUT CALLED APPROPRIATELY. HIS SKIN CONDITION APPEARS TO BE IMPROVING. VITAL SIGNS STABLE, BP SLIGHTLY ELEVATED, HE DOES HAVE BP MEDS SCHEDULED THIS AM. NO OTHER SIGNIFICANT EVENTS THIS SHIFT. WILL CONTINUE TO MONITOR.
--- NOTE | 2021-02-21 04:56 | NUR ---
I HAVE READ AND AGREE WITH DOCUMENTATION AND ASSESSMENT OF STUDENT NURSE ANGELITO FITZGERALD. KONRAD HEAD, RN
--- NOTE | 2021-02-21 13:47 | NUR ---
SHIFT SUMMARY NO ACUTE CHANGES TO PRESENT THIS SHIFT. PT AWAKE AT START OF SHIFT, ON CPAP. ASSISTED WITH REMOVING AND PLACING NC FOR BREAKFAST. PT LATER HAVING EXTRA LRG BM AND THEN GIVEN BED BATH. PT ASSISTED TO RECLINER CHAIR VIA LIFT, AFTER BATH. A&O, PLEASANT AND CO-OP WITH CARE. NO C/O. CALL LT IN REACH. ABLE TO MAKE NEEDS KNOWN.
--- NOTE | 2021-02-22 04:29 | NUR ---
CARBIDE POWDER PROCESSOR SUMMARY PT A/0X4. DENIES SOB, PAIN, NAUSEA. SLEPT WELL TONIGHT, CPAP ON DURING THE NIGHT. PT DESATS DOWN TO THE LOW 80'S AND COMES BACK UP TO THE 90'S WHILE ASLEEP. USES CALL LIGHT APPROPRIATELY. INCONTIENT TO BLADDER. ATTENDS IN PLACE. NO ACUTE CHANGES, CALL LIGHT WITHIN REACH, WILL CONTINUE TO MONITOR.
--- NOTE | 2021-02-22 19:51 | NUR ---
sitting up in bed when shared bsr with noc nurse and pt, denied pain, able to move limbs except l leg, 4L via nc, call light in reach, saline locked no acute changes noted during shift.
--- NOTE | 2021-02-23 05:02 | NUR ---
READING AIDE SUMMARY NO ACUTE CHANGES THIS SHIFT. PT AAOX4 AND PLEASANT. ATTENDS CHANGES AND REPOSITIONING NEEDED. DENIES PAIN. ON 4L O2 VIA NC WHEN AWAKE, CPAP WITH 7L O2 BLEED IN WHILE SLEEPING. VSS, WILL CONTINUE TO MONITOR.
[2021-02-23 05:15] LABS: International Normalized Ratio 2.51; Prothrombin Time Results 25.7 Sec (9.7-11.5)
--- NOTE | 2021-02-23 16:38 | NUR ---
awake and orintated, moves r arm and l af awake and orintated, cleaned ear, no acute changes noted during shift, no IV, call light in reach, medicated as prescribed, no change in condition noted, will continue to monitor and treat until share bsr with noc nurse and pt
--- NOTE | 2021-02-23 19:35 | NUR ---
AWAKE AT SHIFT CHANGE ROUNDS. DENIED PAIN, VOICES FEELING IN ALL 4 EXT, BUT THAT RLE DOES NOT MOVE ON HIS DIRECTION. CALL LIGHT IN REACH
--- NOTE | 2021-02-24 05:44 | NUR ---
REFRIGERATOR ASSEMBLER SUMMARY HAS BEEN RESTING WITH FEW INTERRUPTIONS SINCE HS WITH PERSONAL BIPAP THROUGHOUT THE NIGHT. SOME BOUTS OF SLEEP APNEA NOTED WITH DROPS IN O2 SATS DISPLAYED BY CONTINUOUS O2 SAT MONITOR. INCONT OF URINE X 1. CHANGED. HOB REMAINED UP AT ABOUT 40 DEGREES FOR COMFORT. CALL LIGHT IN REACH. NO C/O VOICED
--- NOTE | 2021-02-24 16:51 | NUR ---
PT IS A/OX3, PLEASANT AND COOPERATIVE, THE PT WAS ASSISTED UP INTO THE RECLINER TODAY, THE PT WORKED WITH THE PHYSICAL THERAPIST TODAY, THE PT WEARS 4L/MIN O2 WHILE AWAKE AND A CPAP WITH 7L/MIN BLEED IN, AT TIMES THE PT FALLS ASLEEP DURING THE DAY WITH THE NC ON AND DE-SATS INTO THE LOW 80'S THE PTS O2 WAS TURNED UP TO 5L/MIN VIA NC, CALL LIGHT IN REACH, WILL CONTINUE TO MONITOR AND ASSESS FOR CHANGES
--- NOTE | 2021-02-24 19:29 | NUR ---
AWAKE AT NURSE RONDS/SHIFT REPOT. NO C/O VOICED, CALL LIGHT IN REACH
--- NOTE | 2021-02-25 03:50 | NUR ---
SLUSHER OPERATOR WUMMARY RESTING QUIETLY WITH CONTINUOUS PULSE OX AND PERSONAL CPAP ON. SLEEP APNEA CONTINUES, INTERMITTENT ALARM GOES OFF. READJUSTMENTS OF FACE MASK MADE THROUGHOUT NOCT PT CONTINUES TO TOUCH MASK AND MOVE IT, BREAKING THE SEAL. NO NOTED ACUTE DISTRESS. CALL LIGHT IN REACH. INCONT OF URINE A FEW TIMES AND CHANGED. REPOSITIONED FOR COMFORT AND SKIN CARE.
--- NOTE | 2021-02-25 18:07 | NUR ---
SHIFT SUMMARY PATIENT ALERT AND ORIENTED THIS SHIFT. PATIENT IS COOPERATIVE WITH CARE. NO ACUTE CHANGES THIS SHIFT. PATIENT UP TO RECLINER WITH LIFT THIS AFTERNOON. PATIENT REMAINS IN THE RECLINER, EATING DINNER AT THIS TIME.
--- NOTE | 2021-02-25 19:32 | NUR ---
AM SHIFT ASSISTED PT BACK TO BED PER LIFT. CALL LI IN REACH
--- NOTE | 2021-02-26 03:49 | NUR ---
GLUE CLAMP OPERATOR SUMMARY HAS BEEN RESTING QUIETLY WITH OCCASIONAL INTERRUPTIONS FOR CLEANING DUE TO INCONTINENCE. O2 PER CPAP, MULTIPLE MASK REFITTINGS TO FACE HE SEEMS TO PULL AT IT AND CAUSE LEAKAGE. SKIN CARE AND MEDS PER NOV. BUTTOCK AREA REMAINS REDDENED. CONTINUE TO ATTEMPT TO REPOSITION TO ALLOW CIRCULATION TO AREA. CALL LIGHT IN REACH
--- NOTE | 2021-02-26 18:29 | NUR ---
a+o but still not moving on own, call light in reach, 4L via nc while awake, no IV, medicated as prescribed, up in chair via lift, will continue to monitor and treat until share bsr with noc nurse and pt
--- NOTE | 2021-02-27 04:57 | NUR ---
SHIFT SUMMARY* PATIENT A&OX4 AND FOLLOWING COMMANDS. R LEG FLACID BUT MOVES ALL OTHER EXTREMETIES. GENERALIZED WEAKNESS NOTED. VSS. NO TELE. ON 5L NC DURING DAY AND CPAP WITH 5-8L BLED IN OVERNIGHT. FREQUENTLY ADJUSTING MASK AND POSITIONING TO KEEPS O2 SAT UP. INCONTINENT OF URINE. ENCOURAGED Q2H TURNS BUT PATIENT OFTEN REFUSING. NO CONCERNS AT THIS TIME. WILL CONTINUE TO MONITOR UNTIL REPORT GIVEN TO DAYSHIFT RN.
[2021-02-27 05:41] LABS: International Normalized Ratio 2.27; Prothrombin Time Results 23.4 Sec (9.7-11.5)
--- NOTE | 2021-02-27 18:06 | NUR ---
SHIFT SUMMARY: NO ACUTE EVENTS. O2 @ 5 L/MIN NC, ON CONTINUOUS OXIMETRY WITH SATS > 90% WHILE AWAKE, BUT DESATS TO 86% WHILE SLEEPING AND WAS EDUCATED THAT HE NEEDS TO WEAR THE CPAP WHEN SLEEPING EVEN DURING THE DAY. C/O "SPASM" LIKE PAIN IN THE L SIDE OF HIS NECK; MEDICATED WITH TYLENOL AND FLEXERIL WITH GOOD RELIEF. EATING 100% OF MEALS. MEPLIEX APPLIED TO BILATERAL GLUTEAL CLEFTS FOR SMALL AREAS OF EXCORIATION. DID NOT GET OOB TODAY.
--- NOTE | 2021-02-27 19:15 | NUR ---
ASSUMED CARE RECEIVED REPORT FROM REED JUAN. PT RESTING, IN NAD, RESPS E/U. O2 SATS WNL ON 5L/NC. PT DENIES NEEDS AT THIS TIME. CALL LIGHT, POSSESSIONS IN REACH, BED IN LOW AND LOCKED POSITION WITH ALARMS ON.
--- NOTE | 2021-02-28 04:09 | NUR ---
EGG GRADER SUMMARY PT A&OX3, DROWSY BUT AROUSABLE TO VERBAL STIMULI. VS REVIEWED, O2 SATS STABLE ON CPAP WITH 7L/O2 BLEED-IN; INCREASED TO 10L WHILE ASLEEP D/T SATS DECREASING INTO 80'S. OTHER VS WNL. HAS BEEN SLEEPING T/O NIGHT. NO C/O PAIN OR DISCOMFORT. NO ACUTE NEEDS ASSESSED AT THIS TIME. CALL LIGHT, POSSESSIONS IN REACH, BED IN LOW AND LOCKED POSITION. WILL CONTINUE TO PROVIDE CARE NEEDED UNTIL REPORT GIVEN TO ONCOMING RN.
--- NOTE | 2021-02-28 18:16 | NUR ---
SHIFT SUMMARY: NO ACUTE EVENTS. DENIED PAIN. O2 @ 5 L/MIN NC HUMIDIFIED, ON CONTINUOUS OXIMETRY. CHANGED REGULAR BED FOR BARIATRIC FOR BETTER BED MOBILITY AND COMFORT. INCONTINENT OF BLADDER, ATTENDS IN PLACE. MEPILEX DRESSING ON BILATERAL CLUTEAL CLEFTS. TOLERATING PO INTAKE. AWAITING PLACEMENT.
--- NOTE | 2021-03-01 05:01 | NUR ---
SHIFT SUMMARY- NO ACUTE CHANGES TO CONDITION THIS SHIFT. PT. SLEPT T/O THE NIGHT WITH CPAP IN PLACE, NO APPARENT DISTRESS NOTED. NO COMPLAINTS OF PAIN OR DISCOMFORT, VSS. CONTINUES TO AWAIT FOR PLACEMENT. CALL LIGHT WITHIN REACH AND BED IN LOW POSITION. WILL CONT TO MONITOR.
--- NOTE | 2021-03-01 17:35 | NUR ---
SHIFT SUMMARY PATIENT ALERT AND ORIENTED THIS SHIFT. PATIENT REMAINS A LIFT PATIENT. PATIENT UP TO RECLINER THIS AM BY LIFT. PATIENT IS COOPERATIVE WITH CARE. PATIENT REMAINS IN RECLINER THROUGHOUT THIS SHIFT. NO ACUTE CHANGES THIS SHIFT. PATIENT CURRENTLY SITTING UP IN RECLINER AWAITING DINNER.
[2021-03-02 05:28] LABS: International Normalized Ratio 2.44; Prothrombin Time Results 25.1 Sec (9.7-11.5)
--- NOTE | 2021-03-02 06:02 | NUR ---
SHIFT SUMMARY- NO ACUTE EVENTS OVERNIGHT. PT. SLEPT T/O THE NIGHT. PERFORMED COMPLETE BED CHANGE AND REPOSTIONED FOR COMFORT/PRN. ALSO DSG CHANGE TO SCARUM DONE. APPLIED MEPILEX'S TO JOHNSON GLUTEAL FOLDS. PT. HAD NO COMPLAINTS OF PAIN OR DISCOMFORT T/O THE NIGHT, VSS. CALL LIGHT WITHIN REACH AND BED IN LOW POSITION. WILL CONT TO MONITOR.
--- NOTE | 2021-03-02 17:29 | NUR ---
SHIFT SUMMARY PATIENT ALERT AND ORIENTED THIS SHIFT. PATIENT REMAINS A LIFT PATIENT. PATIENT UP INTO THE RECLINER FROM BREAKFAST UNTIL DINNER. PATIENT AWAITING PLACEMENT. NO ACUTE CHANGES THIS SHIFT. PATIENT CURRENTLY SITTING UP IN CHAIR AWAITING DINNER.
--- NOTE | 2021-03-03 07:48 | NUR ---
patient slept well despite biox alarm going off most of the night due to patient wrestling with CPAP mask to get comfortable. Staff was prompt to get into the room and readjust the mask over his mouth and nose. Del had no complaints of pain or discomfort overnight
--- NOTE | 2021-03-03 15:37 | NUR ---
PATIENT IS WITHOUT ACUTE CHANGES TO REPORT OF AT THIS TIME. STILL AWAITING PLACEMENT. CALL LIGHT WITHIN REACH.
--- NOTE | 2021-03-04 03:37 | NUR ---
.NO CHANGES OVERNIGHT EXCEPT PATIENT HAVING EVEN MORE DIFFICULTIES MAINTAINING 02 SATURATIONS >88% FOR EVEN BRIEF PERIODS OF TIME. 02 WAS DIPPING INTO MID 70'S ON 5L. RT WAS CONSULTED SEVERAL TIMES, 02 TURNED UP TO 15 LITER BLEED IN, THEN SHORTLY AFTER, DECREASED TO 10 LITERS. RT'S RECOMMENDATIONS WERE TO TIGHTEN STRAPS ON MASK, AND THAT WE COULD RE-INCREASE HIS 02 TO 15 L IF NEEDED. FREQUENT MASK ADJUSTMENTS SEEMED TO MAKE A POSITIVE DIFFERENCE ALSO. OVERALL, NO COMPLAINTS OF PAIN OR DISCOMFORT OVERNIGHT
[2021-03-04 07:27] LABS: PO2 Arterial 92.1 mmHg (80-100); pH Blood Arterial 7.36 (7.35-7.45)
[2021-03-04 07:28] LABS: PCO2 Arterial 82.2 mmHg (35-45)
--- NOTE | 2021-03-04 17:49 | NUR ---
SHIFT SUMMARY PT ALERT AND ORIENTED. VS HAVE REMAINED STABLE. O2 SATS HAVE REMAINED ABOVE 90% ON 5L NC WHILE AWAKE. WHILE PT SLEEPS, HE TENDS TO DESATURATE FOR SHORT PERIODS OF TIME TO LOW 80'S, BUT UPON WAKING HIS SATURATION INCREASES TO >90%. PT HAS DENIED ANY PAIN THIS SHIFT. PT UP TO CHAIR WITH LIFT FOR MEALS. PT HAS BEEN REPOSITIONED Q2H AND NEEDED. PT HAS BEEN INCONTINENT OF VOIDS AND ATTENDS IN PLACE. NO BM THIS SHIFT. WILL CONTINUE TO MONITOR AND REPORT TO ONCOMING RN. CALL LIGHT IN REACH. PT CALLING APPROPRIATELY.
--- NOTE | 2021-03-05 06:33 | NUR ---
Del actually had a really good sleep last night. the Respiratory therapist placed a full face mask on him when he put on his CPAP. Over the coarse of the night, his oxygen saturation dropped only twice briefly into the high 80's then back into the low 90's with a 9 liter bleed in, No void all night, until approx 0530, then a huge incontinence of foul smelling urine. Patient has had no complaints of discomfort or pain
[2021-03-05 17:35] LABS: pH Blood Arterial 7.18 (7.35-7.45)
[2021-03-05 17:36] LABS: PCO2 Arterial > 105 mmHg (35-45); PO2 Arterial 81.3 mmHg (80-100)
[2021-03-05 18:48] LABS: Source, Urine Catheter
[2021-03-05 18:55] LABS: Appearance, Urine Clear (Clear); Bilirubin, Urine Neg (Neg); Blood, Urine 4+ (Neg); Color, Urine Yellow (P-Yellow); Glucose Qualitative, Urine Neg (Neg); Ketones, Urine Neg (Neg); Leukocyte Esterase, Urine 1+ (Neg); Nitrite, Urine Neg (Neg); Protein, Urine 1+ (Neg); Urobilinogen, Urine NORM (Normal)
--- NOTE | 2021-03-05 18:58 | NUR ---
TRANSFER NOTE PATIENT ALERT AND ORIENTED THIS AM. PATIENT REMAINS A LIFT PATIENT FROM THE BED TO RECLINER. PATIENT REMAINED ON 6L O2 FROM THIS MORNING THROUGH EARLY AFTERNOON. LATE AFTERNOON THE PATIENT'S CONTINUOUS PULSE OXEMETER ALARM STARTED SOUNDING. PATIENT'S O2 SATS WERE IN THE LOW TO MID 80S. AFTER ATTEMPTING TO RESOLVE THE ISSUE WITH REPOSITIONING, THROAT CLEARING, AND ENSURING O2 LINE WASN'T KINKED, RESPIRATORY THERAPY WAS CONTACTED TO ASSIST. RESPIRATORY THERAPY RESULTED IN USING A NON-REBREATHER WITH HIGH FLOW O2. DR BEAVERS CONTACTED. THE DECISION WAS MADE TO TRANSFER THE PATIENT TO PCU FOR GREATER CONTROL OF HIS AIRWAY. IV LASIX ADMINISTERED PRIOR TO TRANSFER. PATIENT TRANSFERED TO PCU 16.
[2021-03-05 19:09] LABS: Bacteria Mod /hpf; Squamous Epithelial Cells Rare /hpf (Few); White Blood Cells, Urine 0-2 /hpf (0-5)
[2021-03-05 19:19] LABS: PO2 Arterial 64.1 mmHg (80-100)
[2021-03-05 19:20] LABS: PCO2 Arterial > 105 mmHg (35-45); pH Blood Arterial 7.26 (7.35-7.45)
[2021-03-05 23:04] LABS: PCO2 Arterial 87.1 mmHg (35-45); PO2 Arterial 71.8 mmHg (80-100); pH Blood Arterial 7.36 (7.35-7.45)
[2021-03-06 04:11] LABS: BASOPHILS ABSOLUTE AUTO 0.03 K/mm3 (0.00-0.23); BASOPHILS PERCENT AUTO 0 % (0-2); EOSINOPHILS ABSOLUTE AUTO 0.07 K/mm3 (0.00-0.68); EOSINOPHILS PERCENT AUTO 1 % (0-6); Hematocrit 48.7 % (37.0-53.0); Hemoglobin 15.1 g/dL (13.5-17.5); IMMATURE GRAN ABSOLUTE AUTO 0.06 K/mm3 (0.00-0.10); IMMATURE GRAN PERCENT AUTO 0 % (0-1); LYMPHOCYTES ABSOLUTE AUTO 0.88 K/mm3 (0.84-5.20); LYMPHOCYTES PERCENT AUTO 6 % (21-46); MONOCYTES ABSOLUTE AUTO 1.21 K/mm3 (0.16-1.47); MONOCYTES PERCENT AUTO 8 % (4-13); Mean Corpuscular HGB 28.8 pg (26.0-34.0); Mean Corpuscular Volume 93 fL (80-100); Mean Platelet Volume 9.1 fL (9.1-12.4); NEUTROPHILS ABSOLUTE AUTO 13.13 K/mm3 (1.96-9.15); NEUTROPHILS PERCENT AUTO 85 % (41-73); Platelet Count 149 K/mm3 (150-400); RDW Coefficient Variation 12.9 % (11.7-14.2); Red Blood Cell Count 5.24 M/mm3 (4.30-5.90); White Blood Cell Count 15.38 K/mm3 (4.00-11.30)
[2021-03-06 04:23] LABS: International Normalized Ratio 2.82; Prothrombin Time Results 28.7 Sec (9.7-11.5)
[2021-03-06 04:33] LABS: Alanine Aminotransfer (ALT/SGP 17 U/L (12-78); Albumin, Blood 2.8 g/dL (3.4-5.0); Albumin/Globulin Ratio 0.6 (0.8-1.8); Alk Phos 74 U/L (50-136); Aspartate Aminotrans (AST/SGOT 9 U/L (12-37); Blood Urea Nitrogen 14 mg/dL (8-24); Bun/Creatinine Ratio 29.5 (12.0-20.0); Calcium, Blood 8.6 mg/dL (8.5-10.1); Chloride, Blood 89 mmol/L (98-108); Creatinine, Blood 0.48 mg/dL (0.60-1.20); Globulin, Blood 4.7 g/dL (2.2-4.0); Glomerular Filtration Rate >60 (60-); Glucose, Blood 136 mg/dL (70-99); Potassium, Blood 4.5 mmol/L (3.5-5.5); Sodium, Blood 131 mmol/L (136-145); Total Protein, Blood 7.5 g/dL (6.4-8.2)
[2021-03-06 04:44] LABS: Anion Gap Unable to Calculate mmol/L (6-16); CO2, Blood >45 mmol/L (21-32)
--- NOTE | 2021-03-06 06:42 | NUR ---
SHIFT SUMMARY* PATIENT TRANSFERRED TO FLOOR FROM MEDICAL RIGHT BEFORE START OF ECONOMETRICS PROFESSOR. PATIENT FOUND TO BE LETHARGIC, BUT RESPONDING TO VERBAL STIMULI AND FOLLOWING COMMANDS. BECAME MORE AND MORE ALERT SHIFT WENT ON AND NOW A&OX4. BASELINE BLE WEAKNESS AND R LEG FLACCID. CAN ONLY WIGGLE TOES ON LEFT FOOT.FORGETFUL. WORE BIPAP ALL NIGHT WITHOUT ISSUE WITH 75% O2 SETTING ON THIS. SATED LOW 90'S ALL NIGHT. REPEAT ABG MUCH IMPROVED. VSS. SR/ST ON THE MONITOR WITH PVC'S. NO CP. ORAL CARE PERFORMED Q2H UNTIL THIS AM ALERT ENOUGH NOW TO DRINK. IS FORGETFUL TO THE EVENTS OF THE TRANSFER BUT REMEMBERS FEELING DROWSY. FLANNERY IN PLACE WITH BLOOD TINGED URINE FROM INSERTION. Q2H TURNS IN PLACE. USING LIFT FOR TRANSFERS. IV ABX INFUSED PER ORDER. NO ACUTE CONCERNS AT THIS TIME. WILL CONTINUE TO MONITOR UNTIL REPORT GIVEN TO DAYSHIFT RN.
[2021-03-06 13:52] LABS: Source, Urine Catheter
[2021-03-06 14:35] LABS: Appearance, Urine Cloudy (Clear); Bilirubin, Urine Neg (Neg); Blood, Urine 5+ (Neg); Color, Urine Amber (P-Yellow); Glucose Qualitative, Urine Neg (Neg); Ketones, Urine Neg (Neg); Leukocyte Esterase, Urine 2+ (Neg); Nitrite, Urine Neg (Neg); Protein, Urine 3+ (Neg); Urobilinogen, Urine NORM (Normal)
[2021-03-06 15:01] LABS: Bacteria Mod /hpf; Red Blood Cells, Urine TNTC /hpf (0-2); Squamous Epithelial Cells Rare /hpf (Few)
--- NOTE | 2021-03-06 20:09 | NUR ---
PT ON BIPAP, RECEIVED ORAL CARE AND TRANSFERRED TO 15L SALTER HIGH-FLOW NC AND ASSISTED WITH SETUP AND FEEDING FOR ALL 3 MEALS, DESATURATING EACH TIME TO 86-88% AND RESATURATING TO 89-91% WHEN PLACED BACK ON BIPAP AFTER EACH MEAL; MID-DAY VS HYPERTENSIVE, TACHYPNEIC, FEBRILE, AND TACHYCARDIC, REPORTED TO DR. METCALF AT 1322 VIA PHONE, ORDERS PROVIDED FOR BLOOD CULTURES, URINE CULTURE, AND CHEST XRAY; PT'S FIO2 TITRATED DOWN BY RT TO 65% BY END OF SHIFT AND MASK CHANGED OUT; DR. METCALF WAS CALLED BACK AT 1806 ABOUT PT'S FREQUENT PVCS, RUNS OF VTACH, BIGEMINY, COUPLETS, AND TRIGEMINY WITH LACK OF ASSOCIATED SYMPTOMS PER PT REPORT; PLAN UPDATED TO OBTAIN EKG AND MONITOR PT OVERNIGHT, REPORTING ANY INCEPTION OF SYMPTOMS TO NIGHT PROVIDER; VS STABILIZED BY END OF SHIFT MEASUREMENT; PT DENIES ADDITIONAL CONCERNS AT THIS TIME
--- NOTE | 2021-03-07 05:59 | NUR ---
SHIFT SUMMARY PATIENT FOUND TO BE LETHARGIC, RESPONDONG TO VERBAL STIMULI AND FOLLOWING COMMANDS. INTERMITTENTLY MORE ALERT THROUGHOUT SHIFT AND ORIENTED X4. FORGETFUL. GEN WEAKNESS NOTED WELL R LEG FLACCID AND LEFT CAN ONLY WIGGLE TOES. THIS IS BASELINE FOR PATIENT AND NEEDS LIFT FOR TRANSFERS. NO PAIN OR DISTRESS NOTED UPON ASSESSMENT. BIPAP IN PLACE WITH 65% FIO2 SATING LOW 90'S. TACHYPENIC. TACHY IN THE LOW 100'S WITH FREQUENT RUNS OF COUPLET PVC'S. EKG DONE AT START OF SHIFT AND IN FRONT OF CHART. NO CP OR PALPITATIONS. PATIENT NEEDS FULL TRY SET UP FOR MEALS. ORAL CARE PERFORMED Q2H WHILE ON BIPAP. FLANNERY IN PLACE DRAINING TEA COLORED URINE TO GRAVITY. IV ABX INFUSED PER ORDER. 1ST POSITIVE BLOOD CULTURE REPORTED WITH GRAM POSITIVE BACILLI. PER PHARM VANC DRUG OF CHOICE FOR THIS AND PATIENT ALREADY ON THIS. ENCOURAGING Q2H TURNS BUT OFTEN REFUSES. NO ACUTE CONCERNS AT THIS TIME. WILL CONTINUE TO MONITOR UNTIL REPORT GIVEN TO DAYSHIFT RN.
[2021-03-07 06:10] LABS: BASOPHILS ABSOLUTE AUTO 0.05 K/mm3 (0.00-0.23); BASOPHILS PERCENT AUTO 0 % (0-2); EOSINOPHILS ABSOLUTE AUTO 0.03 K/mm3 (0.00-0.68); EOSINOPHILS PERCENT AUTO 0 % (0-6); Hemoglobin 15.6 g/dL (13.5-17.5); IMMATURE GRAN PERCENT AUTO 1 % (0-1); LYMPHOCYTES ABSOLUTE AUTO 1.08 K/mm3 (0.84-5.20); LYMPHOCYTES PERCENT AUTO 7 % (21-46); MONOCYTES ABSOLUTE AUTO 1.52 K/mm3 (0.16-1.47); MONOCYTES PERCENT AUTO 10 % (4-13); Mean Corpuscular HGB 29.2 pg (26.0-34.0); Mean Corpuscular HGB Conc 31.2 g/dL (31.5-36.5); Mean Corpuscular Volume 94 fL (80-100); NEUTROPHILS ABSOLUTE AUTO 12.68 K/mm3 (1.96-9.15); NEUTROPHILS PERCENT AUTO 82 % (41-73); RDW Coefficient Variation 13.1 % (11.7-14.2); RDW Standard Deviation 44.6 fL (35.1-46.3); Red Blood Cell Count 5.35 M/mm3 (4.30-5.90); White Blood Cell Count 15.46 K/mm3 (4.00-11.30)
[2021-03-07 06:28] LABS: Anion Gap 1 mmol/L (6-16); Blood Urea Nitrogen 20 mg/dL (8-24); Bun/Creatinine Ratio 48.8 (12.0-20.0); CO2, Blood 40 mmol/L (21-32); Calcium, Blood 8.8 mg/dL (8.5-10.1); Chloride, Blood 89 mmol/L (98-108); Creatinine, Blood 0.41 mg/dL (0.60-1.20); Glomerular Filtration Rate >60 (60-); Glucose, Blood 113 mg/dL (70-99); Potassium, Blood 4.7 mmol/L (3.5-5.5); Sodium, Blood 130 mmol/L (136-145)
[2021-03-07 06:51] LABS: Mean Platelet Volume 9.7 fL (9.1-12.4); Platelet Count 127 K/mm3 (150-400)
--- NOTE | 2021-03-07 08:06 | NUR ---
PT NPO FOR SPEECH THERAPY CONSULT PO MEDS ARE HELD
[2021-03-07 15:47] LABS: Vancomycin, Trough 18.3 ug/mL (5.0-10.0)
--- NOTE | 2021-03-07 18:35 | NUR ---
SHIFT NOTE PT HAS BEEN REPOSITIONED NUMEROUS TIMES, FULL BED BATH PERFORMED, PT INCONTENANT OF STOOL. FOLWY DRAINING TO GRAVITY. PT HAS REMAINED ON BIPAP T/O THE DAY HE IS UNABLE TO TOLERATE NASAL CANNULA. PT HAS ALSO BEEN NPO WHILE ON CONTINUOUS BIPAP, SPEECH THERAPY WAS UNABLE TO ASSESS PT TODAY HE WAS UNABLE TO COME OFF OF BIPAP
--- NOTE | 2021-03-08 04:50 | NUR ---
PT'S SPO2 SUDDENLY DECREASING TO MID-70'S WHILE RESTING BECAUSE OF LACK OF PROPER SEAL FROM MASK. PT'S LOWER JAW DROPS BELOW MASK CREATING A SIGNIFICANT LEAK. INCREASED PVC'S AT THIS TIME. CONSULTED W/ RT. CHIN STRAP PLACED W/ GOOD RESULTS. PT MAINTAINING SPO2 GREATER THAN 89% AT THIS TIME. ALSO SHAVED PT'S MORAN PER HIS PERMISSION.
[2021-03-08 08:50] LABS: BASOPHILS ABSOLUTE AUTO 0.06 K/mm3 (0.00-0.23); BASOPHILS PERCENT AUTO 0 % (0-2); EOSINOPHILS ABSOLUTE AUTO 0.02 K/mm3 (0.00-0.68); EOSINOPHILS PERCENT AUTO 0 % (0-6); Hematocrit 49.5 % (37.0-53.0); Hemoglobin 15.2 g/dL (13.5-17.5); IMMATURE GRAN ABSOLUTE AUTO 0.08 K/mm3 (0.00-0.10); IMMATURE GRAN PERCENT AUTO 1 % (0-1); LYMPHOCYTES ABSOLUTE AUTO 0.98 K/mm3 (0.84-5.20); LYMPHOCYTES PERCENT AUTO 6 % (21-46); MONOCYTES ABSOLUTE AUTO 1.31 K/mm3 (0.16-1.47); MONOCYTES PERCENT AUTO 8 % (4-13); Mean Corpuscular HGB 29.9 pg (26.0-34.0); Mean Corpuscular HGB Conc 30.7 g/dL (31.5-36.5); Mean Corpuscular Volume 97 fL (80-100); Mean Platelet Volume 9.6 fL (9.1-12.4); NEUTROPHILS ABSOLUTE AUTO 13.19 K/mm3 (1.96-9.15); NEUTROPHILS PERCENT AUTO 84 % (41-73); Platelet Count 157 K/mm3 (150-400); RDW Coefficient Variation 13.3 % (11.7-14.2); RDW Standard Deviation 47.5 fL (35.1-46.3); Red Blood Cell Count 5.09 M/mm3 (4.30-5.90); White Blood Cell Count 15.64 K/mm3 (4.00-11.30)
[2021-03-08 09:06] LABS: Blood Urea Nitrogen 21 mg/dL (8-24); Bun/Creatinine Ratio 51.5 (12.0-20.0); Calcium, Blood 8.8 mg/dL (8.5-10.1); Chloride, Blood 88 mmol/L (98-108); Creatinine, Blood 0.41 mg/dL (0.60-1.20); Glomerular Filtration Rate >60 (60-); Glucose, Blood 140 mg/dL (70-99); Potassium, Blood 4.1 mmol/L (3.5-5.5); Sodium, Blood 133 mmol/L (136-145)
[2021-03-08 09:21] LABS: CO2, Blood >45 mmol/L (21-32)
[2021-03-08 09:22] LABS: Anion Gap Unable to Calculate mmol/L (6-16)
[2021-03-08 09:55] LABS: PO2 Arterial 82.4 mmHg (80-100)
[2021-03-08 09:56] LABS: PCO2 Arterial > 105 mmHg (35-45); pH Blood Arterial 7.21 (7.35-7.45)
--- NOTE | 2021-03-08 10:40 | NUR ---
PT TRANSFERRED FROM PCU ON BIPAP OF 20/10 WITH 80% FIO2. RESPIRATIONS WITH TACHYPNEA AND SHALLOW BREATHING. RT AND DR GAUTAM AT BEDSIDE. REPORT RECIEVED FROM LINDA MCBRIDE
--- NOTE | 2021-03-08 11:03 | NUR ---
PT ON BIPAP AT START OF SHIFT, RT AT BEDSIDE CHANGING THE BIPAP MASK FOR IMPROVED SEAL. PATIENT ABLE TO RESPOND TO VERBAL STIMULUS, ABLE TO TRACK THIS RN ACROSS ROOM WITH EYES. PATIENT ABLE TO FOLLOW DIRECTIONS, SHOOK HEAD "NO" WHEN ASKED IF HE HAD ANY PAIN. LAB CALLED THIS RN WITH A CRITICAL VALUE OF CO2>45, THIS RN CALLED AND SPOKE WITH DR. METCALF, ORDERS FOR STAT ABG GIVEN. RT COMPLETED ABG THAT SHOWED RESULT OF CO2>105, THIS RN CALLED DR. METCALF WHO GAVE ORDERS FOR ICU TRANSFER. REPORT GIVEN AT BEDSIDE TO TONY RN IN ICU.
--- NOTE | 2021-03-08 12:27 | NUR ---
pt intubated and family notified of change is status.
--- NOTE | 2021-03-08 12:32 | NUR ---
PT INTUBATED AT 11AM WITH 20MG ETOMIDATE AND 20MG OF ROCURONIUM. POSITIVE COLOR CHANGE NOTED WITH INTUBATION. RESTRAINTS IN PLACE. OG PLACED WITH POSITIVE GASTRIC CONTENTS. XRAY CONFIRMED TUBE PLACEMENT. PT'S MICIGNS AC /. PICC RN AT BEDSIDE WITH XRAY FOR CONFIRMATION AT THIS TIME. ECTOPY NOTED ON TELE, SINUS TAC IN LOW 100S OTHERWISE. FREQUENT PVCS HAVE DECREASED WITH BOLUS OF FLUIDS AND INTUBATION. PT'S FLANNERY WITH RED URINE OUTPUT. DRS AWARE OF THIS BEING A NEW DEVELOPMENT OVERNIGHT.
[2021-03-08 14:30] LABS: BASOPHILS ABSOLUTE AUTO 0.03 K/mm3 (0.00-0.23); BASOPHILS PERCENT AUTO 0 % (0-2); EOSINOPHILS ABSOLUTE AUTO 0.03 K/mm3 (0.00-0.68); EOSINOPHILS PERCENT AUTO 0 % (0-6); Hematocrit 45.2 % (37.0-53.0); Hemoglobin 13.8 g/dL (13.5-17.5); IMMATURE GRAN ABSOLUTE AUTO 0.07 K/mm3 (0.00-0.10); IMMATURE GRAN PERCENT AUTO 1 % (0-1); LYMPHOCYTES ABSOLUTE AUTO 1.19 K/mm3 (0.84-5.20); LYMPHOCYTES PERCENT AUTO 8 % (21-46); MONOCYTES ABSOLUTE AUTO 1.46 K/mm3 (0.16-1.47); MONOCYTES PERCENT AUTO 10 % (4-13); Mean Corpuscular HGB 29.1 pg (26.0-34.0); Mean Corpuscular HGB Conc 30.5 g/dL (31.5-36.5); Mean Corpuscular Volume 95 fL (80-100); Mean Platelet Volume 9.8 fL (9.1-12.4); NEUTROPHILS ABSOLUTE AUTO 11.38 K/mm3 (1.96-9.15); NEUTROPHILS PERCENT AUTO 80 % (41-73); Platelet Count 156 K/mm3 (150-400); RDW Coefficient Variation 13.2 % (11.7-14.2); RDW Standard Deviation 46.5 fL (35.1-46.3); Red Blood Cell Count 4.75 M/mm3 (4.30-5.90); White Blood Cell Count 14.16 K/mm3 (4.00-11.30)
[2021-03-08 14:42] LABS: Anion Gap 0 mmol/L (6-16); Blood Urea Nitrogen 22 mg/dL (8-24); Bun/Creatinine Ratio 45.7 (12.0-20.0); CO2, Blood 44 mmol/L (21-32); Calcium, Blood 8.4 mg/dL (8.5-10.1); Chloride, Blood 90 mmol/L (98-108); Creatinine, Blood 0.48 mg/dL (0.60-1.20); Glomerular Filtration Rate >60 (60-); Glucose, Blood 122 mg/dL (70-99); Sodium, Blood 134 mmol/L (136-145)
--- NOTE | 2021-03-08 15:20 | NUR ---
PT'S TELE STARTED SHOWING ST ELEVATION. EKG COMPLETED WITH PERICARDITIS SHOWN. DR GAUTAM AWARE WITH NEW ORDERS FOR TROPONIN TRENDS
[2021-03-08 15:38] LABS: SARS-Cov-2 (COVID-19) PCR, MMC NEGATIVE (NEGATIVE)
[2021-03-08 15:38] LABS: Base Excess Venous 21.2 mmol/L; PCO2 Venous 67.8 mmHg (38-42); PO2 Venous 39.1 mmHg (38-42); pH Blood Venous 7.43 (7.34-7.37)
[2021-03-08 16:23] LABS: International Normalized Ratio 3.47; Prothrombin Time Results 34.9 Sec (9.7-11.5)
--- NOTE | 2021-03-08 17:27 | NUR ---
ECHOCARDIOGRAM COMPLETE
--- NOTE | 2021-03-08 18:50 | NUR ---
SHIFT SUMMARY: PT REMAINS INTUBATED WITH SETTIGNMatilda AC /. PROPOFOL GTT AT 30MCG AT THIS TIME. WRIST RESTRAINTS IN PLACE. FLANNERY CATH IN PLACE WITH RED URINE NOTED AND SMALL CLOTS AT TIMES. PT'S SISTER CALLED AND WAS GIVEN UPDATE. PT REMAINS RESPONSIVE TO NOXIOUS STIMULI
--- NOTE | 2021-03-08 21:00 | NUR ---
ASSUMED CARE AT 1900 PT LAYING IN BED INTUBATED WITH VENT SETTINGS AC 18, TV 370, PEEP 7, FIO2 50%; SMALL AMOUNT OF THICK RED STREAKED SECREATIONS SUCTIONED FROM ETT. PT REACTIVE TO NOXIOUS STIMULI AND PASSIVE ROM; GAG AND COUGH PRESENT; PROPOFOL INFUSING AT 30MCG/KG/MIN. HR 90-100'S. SBP 100-110, MAP >65. OG TO LIS; BILE OUTPUT NOTED; UMBILICAL HERNIA NOTED. FLANNERY PATENT AND DRAINING TO GRAVITY; OUTPUT ORANGE COLOR. PICC TO NIKHIL DRESSING C/D/I. POWERGLIDE TO EDILIA DRESSING C/D/I. SEE SHIFT ASSESSMENT FOR FULL ASSESSMENT.
--- NOTE | 2021-03-08 22:03 | NUR ---
UPDATED FAMILY PT DAUGHTER ZACHARIAH AT SCREENING DESK AND CALLED UP TO ICU. ZACHARIAH DISTRAUGHT ASKING IF HER DAD WAS GOING TO IN THE MIDDLE OF THE NIGHT. ZACHARIAH HAD RECIEVED A CALL FROM HER AUNT (PT SISTER) THAT THE PT WAS ON LIFE SUPPORT AND ACTIVLY DYING. RN EDUCATED HER THAT THE PT O2 REQUIREMENTS HAVE BEEN INCREASING THE LAST FEW DAYS MOST LIKELY RELATED TO A SLOW ASPIRATION CONCERN. ZACHARIAH STATED THAT SHE TALKED TO PT YESTERDAY AND THAT IT WAS DIFFICULT BECUASE HE WAS UNABLE TO REMOVE BIPAP MASK. WAS ABLE TO CALM DAUGHTER DOWN AND SHE STATED SHE WOULD BE IN TOMORROW DURING VISITING HOURS BUT TO CALL IF THEIR WERE ANY CHANGES.
[2021-03-09 03:47] LABS: BASOPHILS ABSOLUTE AUTO 0.05 K/mm3 (0.00-0.23); BASOPHILS PERCENT AUTO 0 % (0-2); EOSINOPHILS ABSOLUTE AUTO 0.09 K/mm3 (0.00-0.68); EOSINOPHILS PERCENT AUTO 1 % (0-6); Hematocrit 41.8 % (37.0-53.0); Hemoglobin 13.2 g/dL (13.5-17.5); IMMATURE GRAN ABSOLUTE AUTO 0.08 K/mm3 (0.00-0.10); IMMATURE GRAN PERCENT AUTO 1 % (0-1); LYMPHOCYTES ABSOLUTE AUTO 1.22 K/mm3 (0.84-5.20); LYMPHOCYTES PERCENT AUTO 10 % (21-46); MONOCYTES ABSOLUTE AUTO 1.19 K/mm3 (0.16-1.47); MONOCYTES PERCENT AUTO 10 % (4-13); Mean Corpuscular HGB 29.4 pg (26.0-34.0); Mean Corpuscular HGB Conc 31.6 g/dL (31.5-36.5); Mean Corpuscular Volume 93 fL (80-100); Mean Platelet Volume 9.4 fL (9.1-12.4); NEUTROPHILS ABSOLUTE AUTO 9.69 K/mm3 (1.96-9.15); NEUTROPHILS PERCENT AUTO 79 % (41-73); Platelet Count 153 K/mm3 (150-400); RDW Coefficient Variation 13.1 % (11.7-14.2); RDW Standard Deviation 44.9 fL (35.1-46.3); Red Blood Cell Count 4.49 M/mm3 (4.30-5.90); White Blood Cell Count 12.32 K/mm3 (4.00-11.30)
[2021-03-09 04:01] LABS: International Normalized Ratio 3.03
[2021-03-09 04:10] LABS: Anion Gap 2 mmol/L (6-16); Blood Urea Nitrogen 21 mg/dL (8-24); Bun/Creatinine Ratio 43.1 (12.0-20.0); CO2, Blood 43 mmol/L (21-32); Calcium, Blood 8.4 mg/dL (8.5-10.1); Chloride, Blood 90 mmol/L (98-108); Creatinine, Blood 0.49 mg/dL (0.60-1.20); Glomerular Filtration Rate >60 (60-); Glucose, Blood 103 mg/dL (70-99); Potassium, Blood 3.1 mmol/L (3.5-5.5); Sodium, Blood 135 mmol/L (136-145)
[2021-03-09 04:40] LABS: Prothrombin Time Results 30.7 Sec (9.7-11.5)
--- NOTE | 2021-03-09 06:24 | NUR ---
END OF SHIFT SUMMARY NO ACUTE EVENTS OVER NIGHT. PT CONT TO BE INTUBATED WITH VENT SETTINGS AC 18, TV 370, PEEP 8, FIO2 50%; SMALL AMOUNT OF SECREATIONS SUCTIONED. PT REACTIVE TO VERBAL STIMULI AND IS ABLE TO ANSWER YES/NO QUESTIONS; PROPOFOL INFUSING AT 25MCG/KG/MIN. PT NODDED YES TO PAIN ONCE; PRN FENTANYL AVAILABLE AND GIVEN; PRN HELPFUL. AFEBRILE. HR 90-100. SBP 100-115. OG TO LIS; 750ML BILE-LIKE OUTPUT. FLANNERY PATENT AND DRAINING TO GRAVITY. PICC OT NIKHIL PATENT AND DRAWS; POWERGLIDE PATENT AND DRAWS. AM POTASSIUM WAS 3.1; ELECTROLYTE PROTOCOL IN PLACE; KCL INFUSING NOW, SEE EMAR. WILL REPORT TO AM RN WHEN AVAILABLE.
--- NOTE | 2021-03-09 08:00 | NUR ---
PT REMAINS INTUBATED, SEDATED, AND RESTRAINED. PT OPENS EYES TO VERBAL STUMULI AND BEGINS PULLING ON RESTRAINTS AND REACHING TOWARDS ETT. PT NODS "YES" TO PAIN. INCREASED PROPOFOL TO 30 MCG/KG/MIN AND MED WITH FENTANYL 25 MCG IVP X1 FOR PAIN/SEDATION ADJUNCT. SBP TRENDING 90-110'S-HELD AM NORVASC. ECG SHOWN SR WITH RATE 90-110'S. LUNGS COARSE TO UPPER LOBES AND DIMINISHED TO LOWER LOBES. ETT SUCTION PRODUCTIVE OF LARGE AMOUNT OF THICK, BEE SECRETIONS-OCCASIONALLY SLIGHT BLOOD TINGED. SATS>90% OF VENT: AC 18, RR 18-22, TV 370, PEEP 8, FIO2 50% OGT TO SUCTION-PRODUCTIVE OF SMALL AMOUNT OF BROWN, LIQUID DRAINAGE. ABDOMEN OBESE WITH BT'S X 4-WILL REQUEST DIETARY CONSULT FOR TUBE FEEDS THIS AM. FLANNERY WITH SMALL AMOUNT OF DARK, YELLOW URINE TO BSD. SKIN WIS VERY DRY AND FLAKY, BUT NOT NOTED SKIN BREAKDOWN-PT IS ON BARIATRIC BED.
--- NOTE | 2021-03-09 12:15 | NUR ---
CONTINUES INTUBATED, SEDATED, AND RESTRAINED-PROPOFOL CONTINUES @ 30 MCCG/KG/MIN. FENTANYL PRN PAIN/SEDATION ADJUNCT. LUNGS REMAIN COARSE AND DIMIMISHED. TV INCREASED TO 500-NO OTHER VENT CHANGES. MAINTAINS SATS>90% ON FIO2 50%. ETT WITH MODERATE AMOUNT OF THICK, BEE SECRETIONS. OGFT-VHP INITIATED AT 20 CC/HR WITH H20 30 CC EVERY 4 HOUR FLUSH.
--- NOTE | 2021-03-09 16:00 | NUR ---
PT STEP DAUGHTER ZACHARIAH AT BEDSIDE. PT OPENS EYES TO HER VOICE AND NODS APPROPRIATELY TO QUESTIONS. POA OBTAINED FROM PT SISTER NGHIA-PT MADE DNR PER PT ADVANCED DIRECTIVE. ALSO, ZACHARIAH GIVEN PT CAR KEYS-PER NGHIA, ZACHARIAH WILL TAKE THE PTS CAR THAT IS CURRENTLY PARKED IN THE [facility] PARKING LOT TO HER HOME. TEMP 99.6-NO OTHER ACUTE CHANGES-TOLERATING TF WELL.
--- NOTE | 2021-03-09 17:45 | NUR ---
PT GRIMACING AND NODS "YES" TO PAIN-PROPOFOL CONTINUES @ 30 MCG/KG/MIN. MED WITH FENTANYL 25 MCG IVP X 1. LINEN CHANGE COMPLETED AND PT REPOSITIONED TO COMFORT ON LEFT SIDE. CBG 130-TOLERATING TF WELL.
--- NOTE | 2021-03-09 20:30 | NUR ---
SHIFT ASSESSMENT ASSUMED CARE OF PT @ 1900. REPORT FROM REED MOELLER. PT LAYING IN BED, INTUBATED AND SEDATED, WILL OPEN EYES TO STIMULI. VENT SETTINGS-AC:18/500/50%/ PEEP 8 c O2 SATS >88%. PROPOFOL GTT @ 30MCG/KG/MIN. HR 90-100'S, SBP 90'S-110'S c PVC'S. TF @ GOAL RATE c 30ML FLUSH Q4HR. ABDOMEN LARGE AND DISTENDED, ABDOMINAL HERNIA NOTED. FLANNERY CATH DRAINING MANJIT/YELLOW URINE. SKIN IS DRY AND FLAKY. WILL CONTINUE TO MONITOR CLOSELY.
[2021-03-10 03:27] LABS: BASOPHILS ABSOLUTE AUTO 0.06 K/mm3 (0.00-0.23); BASOPHILS PERCENT AUTO 1 % (0-2); EOSINOPHILS ABSOLUTE AUTO 0.11 K/mm3 (0.00-0.68); EOSINOPHILS PERCENT AUTO 1 % (0-6); Hematocrit 41.5 % (37.0-53.0); Hemoglobin 13.5 g/dL (13.5-17.5); IMMATURE GRAN ABSOLUTE AUTO 0.13 K/mm3 (0.00-0.10); IMMATURE GRAN PERCENT AUTO 1 % (0-1); LYMPHOCYTES PERCENT AUTO 14 % (21-46); MONOCYTES ABSOLUTE AUTO 1.06 K/mm3 (0.16-1.47); MONOCYTES PERCENT AUTO 10 % (4-13); Mean Corpuscular HGB 29.2 pg (26.0-34.0); Mean Corpuscular HGB Conc 32.5 g/dL (31.5-36.5); Mean Corpuscular Volume 90 fL (80-100); Mean Platelet Volume 9.3 fL (9.1-12.4); NEUTROPHILS ABSOLUTE AUTO 7.62 K/mm3 (1.96-9.15); NEUTROPHILS PERCENT AUTO 73 % (41-73); Platelet Count 166 K/mm3 (150-400); RDW Coefficient Variation 13.7 % (11.7-14.2); Red Blood Cell Count 4.62 M/mm3 (4.30-5.90); White Blood Cell Count 10.38 K/mm3 (4.00-11.30)
[2021-03-10 03:51] LABS: Magnesium, Blood 1.9 mg/dL (1.6-2.4)
[2021-03-10 03:53] LABS: Anion Gap 2 mmol/L (6-16); Blood Urea Nitrogen 22 mg/dL (8-24); Bun/Creatinine Ratio 35.9 (12.0-20.0); CO2, Blood 39 mmol/L (21-32); Calcium, Blood 8.2 mg/dL (8.5-10.1); Chloride, Blood 94 mmol/L (98-108); Creatinine, Blood 0.61 mg/dL (0.60-1.20); Glomerular Filtration Rate >60 (60-); Glucose, Blood 117 mg/dL (70-99); Phosphorus, Blood 0.8 mg/dL (2.5-4.9); Potassium, Blood 2.7 mmol/L (3.5-5.5); Sodium, Blood 135 mmol/L (136-145)
--- NOTE | 2021-03-10 06:31 | NUR ---
SHIFT SUMMARY PT REMAINS INTUBATED AND SEDATED. VENT SETTINGS CURRENTLY AC-18/500/60%/ PEEP-8 c O2 SATS >90%. PT TAKEN TO CT AROUND MIDNIGHT, TOLERATED WELL. TF CONTINUES AT GOAL RATE, PT TOLERATING. NO BM DURING THE NIGHT. FLANNERY CATH CONTINUES TO DRAIN MANJIT/ YELLOW URINE. NO OTHER ACUTE CHANGES IN PT CONDITION DURING THE NIGHT. WILL CONTINUE TO MONITOR, REPORT TO ONCOMING NURSE.
--- NOTE | 2021-03-10 08:00 | NUR ---
PT REMAINS INTUBATED, SEDATED, AND RESTRAINED. PT NODS "YES" TO PAIN WITH PROPOFOL @ 30 MCG/KG/MIN-MED WITH FENTANYL 25 MCG IVP X1-SEE EMAR. PT PULLS ON RESTRAINTS WITH NOXIOUS STIMULI, SUCH ORAL CARE AND SUCTIONING. NO NOTED MOVEMENT TO LOWER EXTREMITIES. PT IS AFEBRILE-ECG SHOWS SR WITH RATE 80-90'S. SBP TRENDING 130'S. LUNGS DIMINISHED IN THE BASES. ETT SUCTION PRODUCTIVE OF A MODERATE AMOUNT OF THICK, BEE SECRETIONS. ETT TO VENT: AC 18, TV 500, PEEP 8, FIO2 60%-PT MAINTAINS SATS>90% ABDOMEN REMAINS OBESE WITH UMBILICAL HERNIA. TOLERATING TF WELL. NO BM-WILL INITIATE BOWEL REGIME.FLANNERY WITH ADEQUATE AMOUNT OF DARK, ORANGE/YELLOW URINE TO BSD. SKIN DRY AND [id number]-[id number] POWDER TO ALL SKIN FOLDS. MEPILEX INTACT TO COCCYX. LEFT GREAT TOE WITH SCAB CECELIA. INCREASED GENERALIZED EDEMA NOTED, PARTICULARLY TO LOWER EXTREMITIES-3+ KPHOS 20 MMOL REPLACEMENT INFUSING-WILL RE-CHECK @ 1200.
[2021-03-10 12:00] LABS: Vancomycin, Trough 17.7 ug/mL (5.0-10.0)
--- NOTE | 2021-03-10 12:00 | NUR ---
PT RESTING QUIETLY ON THE VENT WHEN NOT DISTURBED. OPENS EYES TO VOICE. NODDED "NO" WHEN ASKED IF IN PAIN. VS WDL-MAINTAINS SATS>90% ON FIO2 50%.
[2021-03-10 12:01] LABS: Phosphorus, Blood 1.4 mg/dL (2.5-4.9); Potassium, Blood 2.9 mmol/L (3.5-5.5)
--- NOTE | 2021-03-10 17:45 | NUR ---
PT RESTS QUIETLY WHEN NOT DISTURBED. AROUSES TO VOICE AND ABLE TO NOD APPROPRIATELY TO "YES" OR "NO" QUESTIONS. VS WDL. TOLERATING OGTF WELL.URINE OUTPUT IMPROVED FROM 03/09/21. PT SISTER TIFFANIE UPDATED TO PT STATUS AND PLAN OF CARE. ANTICIPATE WEANING TRIAL IN AM-DESPITE THE PEEP OF 8-PER DR. FAN.
--- NOTE | 2021-03-10 19:46 | NUR ---
review of pt with nursing and damage inside adjuster sister in tomorrow to plan his care code status updated by sister with physician.
--- NOTE | 2021-03-10 21:06 | NUR ---
SHIFT ASSESSMENT ASSUMED CARE OF PT @ 1900. REPORT RECEIVED FROM REED MOELLER. PT INTUBATED AND SEDATED, WILL RESPOND TO VERBAL STIMULI, SHAKES HEAD YES/NO. PULLS AT RESTRAINTS WITH ORAL CARE. VENT SETTINGS- AC:18/500/55%/PEEP-8 c O2 SATS >90%. CPT INITIATED THIS EVENING, MODERATE AMOUNT OF SECRETIONS SUCTIONED POST CPT. TF CONTINUES AT GOAL RATE, PT TOLERATING AT THIS TIME. ABDOMEN LARGE, DISTENDED. FLANNERY CATH DRAINING YELLOW URINE. SKIN IS DRY/ FLAKY, MEPILEX DRESSING TO COCCYX C/D/I. VSS, WILL CONTINUE TO MONITOR CLOSELY.
[2021-03-11 03:37] LABS: BASOPHILS ABSOLUTE AUTO 0.07 K/mm3 (0.00-0.23); BASOPHILS PERCENT AUTO 1 % (0-2); EOSINOPHILS ABSOLUTE AUTO 0.28 K/mm3 (0.00-0.68); EOSINOPHILS PERCENT AUTO 3 % (0-6); Hematocrit 41.1 % (37.0-53.0); Hemoglobin 13.5 g/dL (13.5-17.5); IMMATURE GRAN ABSOLUTE AUTO 0.18 K/mm3 (0.00-0.10); IMMATURE GRAN PERCENT AUTO 2 % (0-1); LYMPHOCYTES ABSOLUTE AUTO 1.32 K/mm3 (0.84-5.20); LYMPHOCYTES PERCENT AUTO 13 % (21-46); MONOCYTES ABSOLUTE AUTO 0.92 K/mm3 (0.16-1.47); MONOCYTES PERCENT AUTO 9 % (4-13); Mean Corpuscular HGB 29.7 pg (26.0-34.0); Mean Corpuscular HGB Conc 32.8 g/dL (31.5-36.5); Mean Corpuscular Volume 90 fL (80-100); Mean Platelet Volume 9.5 fL (9.1-12.4); NEUTROPHILS ABSOLUTE AUTO 7.69 K/mm3 (1.96-9.15); NEUTROPHILS PERCENT AUTO 74 % (41-73); Platelet Count 173 K/mm3 (150-400); RDW Coefficient Variation 14.3 % (11.7-14.2); RDW Standard Deviation 46.5 fL (35.1-46.3); Red Blood Cell Count 4.55 M/mm3 (4.30-5.90); White Blood Cell Count 10.46 K/mm3 (4.00-11.30)
[2021-03-11 03:55] LABS: Albumin, Blood 2.3 g/dL (3.4-5.0); Anion Gap 2 mmol/L (6-16); Blood Urea Nitrogen 18 mg/dL (8-24); Bun/Creatinine Ratio 30.1 (12.0-20.0); CO2, Blood 37 mmol/L (21-32); Calcium, Blood 8.2 mg/dL (8.5-10.1); Chloride, Blood 97 mmol/L (98-108); Glomerular Filtration Rate >60 (60-); Glucose, Blood 106 mg/dL (70-99); Phosphorus, Blood 3.3 mg/dL (2.5-4.9); Potassium, Blood 2.8 mmol/L (3.5-5.5); Sodium, Blood 136 mmol/L (136-145)
--- NOTE | 2021-03-11 06:20 | NUR ---
SHIFT SUMMARY PT REMAINS INTUBATED AND SEDATED. VENT SETTINGS AC-18/500/50%/ PEEP-8 c O2 SATS >90%. PROPOFOL CONTINUES @ 30MCG/KG/MIN. RT IN ROOM @ 0515 FOR SPONTANEOUS PS TRIAL, SEE RT NOTE FOR FULL DETAIL. PROPOFOL PLACED ON SB, PT TOLERATED PS FOR APPROXIMATELY 30 MINS BEFORE NODDING YES TO BEING SOB c RR OF 30 , SPO2 REMAINED >88%. PT FOLLOWING COMMANDS DURING THAT TIME, ATTEMPTING TO WRITE ON COMMUNICATION BOARD. K+ CURRENTLY BEING REPLINISHED. NO OTHER ACUTE CHANGES IN PT CONDITION, WILL CONTINUE TO MONITOR.
--- NOTE | 2021-03-11 08:00 | NUR ---
PT REMAINS INTUBATED, SEDATED, AND RESTRAINED. OPENS EYES TO VOICE AND NODS "NO" TO PAIN-PROPOFOL DRIP CONTINUES @ 30 MCG/KG/MIN. ECG SHOWS SR WITH RATE 80'S. SBP TRENDING 110-120'S. 3+ LOWER EXTREMITY CONTINUES AND 2+ GENERALIZED EDEMA CONTINUES WELL. LUNGS DIMINISHED IN THE BASES. ETT TO VENT:AC 18, TV 500, PEEP 8, FIO2 50% FEWER, THICK, BEE SECRETIONS THIS AM. CHEST CPT INITIATED. PT TOLERATED 30 MINUTE WEANING TRIAL QUITE FAIR THIS AM. HE WAS AWAKE, ALERT, AND CALM THROUGH OUT THE PROCESS. AFTER 30 MINUTES, HE BECAME TACHYPNEIC, BUT MAINTAINED ADEQUATE TV'S. PT DID NOD "YES" WHEN ASKED IF HE FELT SOB. ANTICIPATE NEXT WEANING TRIAL 03/12/21 AM. PT CONTINUES TO TOLERATE TF WELL-MINIMAL RESIDUALS. PT HAS NOT HAD A BM FOR SEVERAL DAYS-GIVEN DSS-SEE EMAR. FLANNERY WITH SMALL AMOUNT OF DARK, YELLOW/ORANGE URINE. K+REPLACEMENT INFUSING. WILL RE-CHECK K+ AT 1230.
--- NOTE | 2021-03-11 10:30 | NUR ---
PT OPENED HIS EYES AND WAS WIDE AWAKE AFTER TURNING. PT SMILING AROUND ETT AND ABLE TO NOD APPROPRIATELY TO "YES" OR "NO" QUESTIONS. DR. FAN SUMMONED TO BEDSIDE TO DISCUSS END OF LIFE ISSUES SUCH NEED FOR TRACH AND PEG-PT VERY ALERT DURING THE CONVERSATION AND INDICATING THAT HE WOULD NOT WANT EITHER A TRACH OR A PEG TUBE. PLAN FOR PT SISTER NGHIA WHO IS THE POA TO DISCUSS POSSIBLE COMFORT CARE WHEN SHE ARRIVES ON FRIDAY OR FRIDAY- PT NODS IN AGREEMENT TO THIS PLAN.
--- NOTE | 2021-03-11 15:30 | NUR ---
PT WIDE AWAKE, GRIMACING, COUGHING, AND PULLING ON RESTRAINTS DURING POSITION CHANGE. PT NODS "YES" TO PAIN. MED WITH FENTANYL 25 MCG IVP X1. VS REMAIN WDL. NOT VENT CHANGES. LUNGS COARSE TO UPPER LOBES. ETT SUCTION PRODUCTIVE OF A SMALL AMOUNT OF THICK, BEE SECRETIONS. PT CONTINUES TO TOLERATE TF WELL-MINIMAL RESIDUALS. FLANNERY WITH 1100 CC DARK, ORANGE/YELLOW URINE SO FAR THIS SHIFT-LASIX 40 MG IVP X [address] FAN ORDER-SEE EMAR. KCL 40 MEQ LIQUID GIVEN VIA OGT. PT HAS NOT HAD A BM. MEPILEX DRESSING TO COCCYX REMAINS C/D/I.
--- NOTE | 2021-03-11 17:45 | NUR ---
PT NODDED "YES" TO PAIN. MED WITH FENTANYL 25 MCG IVP X1, THEN POSITIONED TO COMFORT ON LEFT SIDE. FLANNERY WITH ADDITIONAL 1100 CC U/O SINCE LASIX GIVEN.
--- NOTE | 2021-03-11 21:45 | NUR ---
SHIFT ASSESSMENT aSSUMED CARE OF PT @ 1900. REPORT RECEIVED FROM REED MOELLER. PT INTUBATED AND SEDATED. OPENS EYES SPONTANEOUSLY, FOLLOWING SIMPLE DIRECTIONS, NODS HEAD YES/NO TO QUESTIONING. VENT SETTINGS- AC: 18/500/50%/PEEP-8 c O2 SATS >90%. CPT CONTINUES, MINIMAL SECRETIONS AT THIS TIME. TF CONTINUES AT GOAL, MINIMAL RESIDUALS. NO BM, TREATING c DSS. FLANNERY CATH DRAINING CLEAR, YELLOW URINE. WILL CONTINUE TO MONITOR CLOSELY.
[2021-03-12 04:06] LABS: BASOPHILS ABSOLUTE AUTO 0.06 K/mm3 (0.00-0.23); BASOPHILS PERCENT AUTO 1 % (0-2); EOSINOPHILS ABSOLUTE AUTO 0.31 K/mm3 (0.00-0.68); EOSINOPHILS PERCENT AUTO 3 % (0-6); Hematocrit 40.4 % (37.0-53.0); Hemoglobin 13.2 g/dL (13.5-17.5); IMMATURE GRAN ABSOLUTE AUTO 0.27 K/mm3 (0.00-0.10); IMMATURE GRAN PERCENT AUTO 3 % (0-1); LYMPHOCYTES ABSOLUTE AUTO 1.32 K/mm3 (0.84-5.20); LYMPHOCYTES PERCENT AUTO 12 % (21-46); MONOCYTES ABSOLUTE AUTO 0.82 K/mm3 (0.16-1.47); MONOCYTES PERCENT AUTO 8 % (4-13); Mean Corpuscular HGB 29.1 pg (26.0-34.0); Mean Corpuscular HGB Conc 32.7 g/dL (31.5-36.5); Mean Corpuscular Volume 89 fL (80-100); Mean Platelet Volume 9.3 fL (9.1-12.4); NEUTROPHILS ABSOLUTE AUTO 7.85 K/mm3 (1.96-9.15); NEUTROPHILS PERCENT AUTO 74 % (41-73); Platelet Count 177 K/mm3 (150-400); RDW Coefficient Variation 14.6 % (11.7-14.2); RDW Standard Deviation 47.1 fL (35.1-46.3); Red Blood Cell Count 4.54 M/mm3 (4.30-5.90); White Blood Cell Count 10.63 K/mm3 (4.00-11.30)
[2021-03-12 04:22] LABS: Albumin, Blood 2.2 g/dL (3.4-5.0); Anion Gap 4 mmol/L (6-16); Blood Urea Nitrogen 20 mg/dL (8-24); Bun/Creatinine Ratio 27.9 (12.0-20.0); CO2, Blood 32 mmol/L (21-32); Calcium, Blood 8.2 mg/dL (8.5-10.1); Chloride, Blood 103 mmol/L (98-108); Creatinine, Blood 0.72 mg/dL (0.60-1.20); Glomerular Filtration Rate >60 (60-); Glucose, Blood 112 mg/dL (70-99); Magnesium, Blood 1.8 mg/dL (1.6-2.4); Potassium, Blood 3.2 mmol/L (3.5-5.5); Sodium, Blood 139 mmol/L (136-145)
--- NOTE | 2021-03-12 06:35 | NUR ---
SHIFT SUMMARY PT REMAINS INTUBATED AND SEDATED, WAKENS TO VERBAL STIMULI. FOLLOWING SIMPLE COMMANDS, WILL LET NURSE KNOW IF IN PAIN OR SOB. GIVEN 2 X 25MCG FENTANYL. NO CHANGES IN VENT SETTINGS DURING THE NIGHT. PROPOFOL GTT TITRATED UP TO 35MCG/KG/MIN. FLANNERY CATH IN PLACE, DRAINING YELLOW/ GREEN URINE. NO BM LAST NIGHT, CONTINUING TO ADMINISTER DOCUSATE. TF @ GOAL, NO RESIDUALS. K+ CURRENTLY BEING REPLACED. NO OTHER ACUTE CHANGES DURING THE NIGHT. WILL CONTINUE TO MONITOR.
--- NOTE | 2021-03-12 10:37 | NUR ---
CARE ASSUMED ASSESSMENTS COMPLETED. PT REMAINS SEDATED WITH PROPOFOL AND INTUBATED, THOUGH IS AWAKE WITH EYES OPEN, FOLLOWS COMMANDS AND ANSWERS YES/NO QUESTIONS APPROPRIATELY. DENIES PAIN AND SOB, PROPOFOL INCREASED TO 40MCG FOR COMFORT. VENT AC 18, Vt 500, PEEP 8, FIO2 50%, SPO2 LOW 90'S. LS CLEAR, DIMINISHED ON R, MODERATE AMOUNT OF BEE SECRETIONS FROM ETT. HR SINUS 80'S, SBP 90-110. ABD DISTENDED, BT HYPOACTIVE, OGT WITH VITAL HP AT GOAL 20ML/HR. FLANNERY PATENT, SMALL AMOUNT OF BLOOD NOTED IN URINE, FLANNERY SECURED. EXTREMS EDEMATOUS, ELEVATED ON PILLOWS. DR. DSOUZA IN TO ASSESS, PEEP INCREASED TO 12, OTHER VENT SETTINGS UNCHANGED. AWAITING PT'S SISTER TO ARRIVE TO DISCUSS PLAN OF CARE, PC ON CASE. PT RESTING QUIETLY WITH EYES CLOSED AFTER PROPOFOL INCREASED.
[2021-03-12 11:55] LABS: Vancomycin, Random 17.5 ug/mL
--- NOTE | 2021-03-12 15:12 | NUR ---
UPDATE PT HAS BEEN RESTING QUIETLY, OPENS EYES TO VOICE, RESPONDS YES/NO INTERMITTENTLY, NO S/SX DISCOMFORT, APPEARS TO BE MORE RESTFUL WITH PROPOFOL 40MCG. VENT SETTINGS UNCHANGED, CPT ADMINISTERED BY RT, LS REMAIN CLEAR, SCANT SECRETIONS FROM ETT. LAST DOCUMENTED BM 9 DAYS AGO, BOWEL CARE ADMINISTERED, AWAITING RESULTS. SMALL AMOUNT OF STOOL DISIMPACTED FROM RECTUM. SCANT BLEEDING FROM SMALL SHEER INJURY TO L BUTTOCK WHEN CLEANING PT AFTER BOWEL CARE, PT REPOSITIONED WITH PILLOWS TO REDUCE PRESSURE. DAUGHTER AT BEDSIDE AT THIS TIME TO VISIT.
--- NOTE | 2021-03-12 18:53 | NUR ---
END OF SHIFT PT RESTED WELL T/O DAY, VSS. THIS EVENING, PT WAS ABLE TO WAKE AND INTERACT BRIEFLY WITH HIS DAUGHTER, ANSWERING YES AND NO. DAUGHTER REPORTS PT INDICATED HE WANTS TO BE EXTUBATED TO COMFORT. THIS RN ALONE AT BEDSIDE WITH PT, PT WITH EYES OPEN, ANSWERING YES/NO AND FOLLOWING DIRECTION. ASKED IF PT WOULD LIKE TO BE EXTUBATED DESPITE FACT THAT IT MAY END HIS LIFE, PT NODS HEAD YES. PTS SISTER WHO IS POA IS TO ARRIVE TOMORROW MORNING TO DISCUSS PLAN OF CARE. PT CURRENTLY RESTING WITH EYES CLOSED, PROPOFOL REMAINS AT 40MCG. LS CLEAR, DIM IN BASES, VENT SETTINGS UNCHANGED, RR 18, SPO2 93%. HR SINUS 80'S, BP STABLE. ABD DISTENDED, FIRM, NO ADDITIONAL BM AFTER DISIMPACTION. FLANNERY PATENT, NO MORE BLOOD NOTED AFTER AM ASSESSMENT, URINE GREEN. TEMP 100.0, FAN ON AND COOL RAG TO FOREHEAD. EXTREMS ELEVATED, LE EDEMA SEEMS TO BE IMPROVING AFTER LASIX.
--- NOTE | 2021-03-12 19:13 | NUR ---
Review of pt in rounds and with nursing sister hopes to be here friday. will address care plan.
--- NOTE | 2021-03-12 19:26 | NUR ---
ASSUMPTION OF CARE RECEIVED REPORT FROM BEN MCBRIDE. ASSUMED CARE OF PATIENT. PATIENT INTUBATED AND SEDATED. ETT 8.0, 25 AT THE GUMS, VENT SETTINGS AC 18/500/12/50% WITH 02 SATS OF 93%. RASHAWN 4 AND PROPOFOL AT 40MCG/KG/MIN. TF INFUSING AT GOAL RATE OF 35ML/HR VIA OG TUBE. VITALS STABLE. FLANNERY CATHETER PATENT AND DRAINING CLEAR, YELLOW URINE. WILL REVIEW ORDERS AND TREAT PRESCRIBED.
--- NOTE | 2021-03-13 | NUR ---
REASSESSMENT NO ACUTE CHANGES FROM PREVIOUS ASSESSMENT. SEDATION OF PROPOFOL AT 40MCG/KG/MIN, VENT SETTINGS AC18/500/12/50% WITH SATS AT 90%. FEBRILE AT 100F, FAN PLACED AT BEDSIDE, WILL REASSESS.
[2021-03-13 03:35] LABS: BASOPHILS ABSOLUTE AUTO 0.06 K/mm3 (0.00-0.23); BASOPHILS PERCENT AUTO 0 % (0-2); EOSINOPHILS ABSOLUTE AUTO 0.27 K/mm3 (0.00-0.68); EOSINOPHILS PERCENT AUTO 1 % (0-6); Hematocrit 42.2 % (37.0-53.0); Hemoglobin 13.5 g/dL (13.5-17.5); IMMATURE GRAN ABSOLUTE AUTO 0.23 K/mm3 (0.00-0.10); IMMATURE GRAN PERCENT AUTO 1 % (0-1); LYMPHOCYTES ABSOLUTE AUTO 0.45 K/mm3 (0.84-5.20); LYMPHOCYTES PERCENT AUTO 2 % (21-46); MONOCYTES ABSOLUTE AUTO 0.76 K/mm3 (0.16-1.47); MONOCYTES PERCENT AUTO 4 % (4-13); Mean Corpuscular HGB 29.1 pg (26.0-34.0); Mean Corpuscular Volume 91 fL (80-100); Mean Platelet Volume 9.3 fL (9.1-12.4); NEUTROPHILS ABSOLUTE AUTO 17.18 K/mm3 (1.96-9.15); NEUTROPHILS PERCENT AUTO 91 % (41-73); Platelet Count 175 K/mm3 (150-400); RDW Coefficient Variation 14.9 % (11.7-14.2); RDW Standard Deviation 48.9 fL (35.1-46.3); Red Blood Cell Count 4.64 M/mm3 (4.30-5.90); White Blood Cell Count 18.95 K/mm3 (4.00-11.30)
[2021-03-13 03:51] LABS: Albumin, Blood 2.2 g/dL (3.4-5.0); Anion Gap 5 mmol/L (6-16); Blood Urea Nitrogen 21 mg/dL (8-24); CO2, Blood 32 mmol/L (21-32); Chloride, Blood 101 mmol/L (98-108); Creatinine, Blood 0.66 mg/dL (0.60-1.20); Glomerular Filtration Rate >60 (60-); Glucose, Blood 134 mg/dL (70-99); Potassium, Blood 3.5 mmol/L (3.5-5.5); Sodium, Blood 138 mmol/L (136-145)
--- NOTE | 2021-03-13 04:00 | NUR ---
REASSESSMENT NO ACUTE CHANGES FROM PREVIOUS ASSESSMENT. SEDATED WITH 40MCG/KG/MIN OF PROPOFOL, OPENS EYES TO PHYSICAL STIMULI, ANSWERS QUESTIONS BY NODDING HEAD YES OR NO. VENT SETTINGS AC 18/500/12/50% WITH 02 SATS 89-92%. FEBRILE AT 99. FAN REMAINS ON. WILL CONTINUE TO MONITOR.
--- NOTE | 2021-03-13 06:06 | NUR ---
SHIFT SUMMARY SEDATION OF PROPOFOL AT 40MCG/KG/MIN CONTINUES, NO CHANGES TO VENT SETTINGS OF AC 18/500/12/50%. OG WITH TF AT GOAL OF 35ML/HR, WITH NO RESIDUALS. FEBRILE WITH A TEMP OF 99-100, FAN AT BEDSIDE. FLANNERY REMAINED PATENT AND DRAINING CLEAR, MANJIT URINE. TWO BOWEL MOVEMENTS NOTED WITH BOTH FORMED AND LIQUID STOOL PRESENT. WILL CONTINUE TO MONITOR AND REPORT TO ONCOMING RN.
--- NOTE | 2021-03-13 10:20 | NUR ---
CARE ASSUMED ASSESSMENTS COMPLETED, PT QUITE SEDATE ON THIS RN'S ARRIVAL, PROPOFOL DECREASED TO 30MCG. PT THEN ABLE TO OPEN EYES AND ANSWER YES/NO QUESTIONS. LS CLEAR, DIMINISHED, VENT SETTINGS UNCHANGED, SPO2 90-93%. HR SINUS 80'S, SBP 90'S, AMLODIPINE HELD. PT HAS LARGE AMOUNTS OF GREEN NASAL DRAINAGE, ORAL AND NASAL SUCTIONING PERFORMED. ABD REMAINS DISTENDED AND FIRM WITH DECREASED BT'S, TF AT 35ML/HR, SMEAR OF LOOSE BM THIS MORNING, MEPILEX TO COCCYX CDI. AM CARES COMPLETED, DR. DSOUZA IN TO ASSESS, PROPOFOL OFF FOR SEDATION VACATION. PT'S FAMILY AT BEDSIDE, AWAITING SISTER NGHIA (POA) TO ARRIVE TO MAKE DECISIONS REGARDING PLAN OF CARE. PT AWAKE AT THIS TIME, ABLE TO ANSWER YES/NO QUESTIONS APPROPRIATELY, IS COMMUNICATING WITH FAMILY. INDICATES TO THIS RN THAT HE WOULD LIKE TO BE EXTUBATED, APPEARS CAPABLE OF PARTICIPATING IN DECISIONS REGARDING HIS CARE. WILL NOTIFY DR. DSOUZA WHEN PT'S POA ARRIVES.
--- NOTE | 2021-03-13 12:49 | NUR ---
UPDATE SEDATION REMAINS OFF, PT ALERT, ABLE TO COMMUNICATE WITH FAMILY, ANSWERS YES/NO APPROPRIATELY, FOLLOWS DIRECTION. VENT SETTINGS UNCHANGED, RR 21, SPO2 94%. PT'S POA AT BEDSIDE, DR. DSOUZA AND PALLIATIVE RN IN TO SPEAK WITH FAMILY, DECISION MADE TO EXTUBATE TO COMFORT, PT AND FAMILY ALL AGREE. PT NODS HEAD YES WHEN ASKED IF HE WANTS ETT REMOVED, COMFORT CARE EXPLAINED TO PT AND HE NODS IN AGREEANCE.
--- NOTE | 2021-03-13 14:07 | NUR ---
EXTUBATION TO COMFORT PT PRE MEDICACTED WITH 4MG MS, THEN EXTUBATED AT 1353 TO 10L/HIGH FLOW NC WITH HUMIDIFICATION, RESTRAINTS REMOVED. SPO2 INITIALLY 85, HAS SINCE DEREASED TO HIGH 60'S. PT AWAKE, ALERT, ABLE TO COMMUNICATE NEEDS. THIS RN ASKED PT IF HE WOULD LIKE HIS HOME BIPAP, PT REFUSES AT THIS TIME. STAETS HE IS HOT, DENIES OTHER DISCOMFORT, FAN AND COOL WASHCLOTHS GIVEN. FAMILY REMAINS AT BEDSIDE WITH PT. WILL MEDICATE FOR COMFORT.
--- NOTE | 2021-03-13 14:35 | NUR ---
UPDATE PT HYPOXIC, CYANOTIC, CONTINUES TO REFUSE HIS BIPAP MASK. MEDICATED FOR COMFORT WITH ATIVAN. PT BECAME UNRESPONSIVE SHORTLY AFTER ATIVAN, SPO2 CONTINUES TO DECREASE, FACE CYANOTIC. ROXANOL AND SECOND DOSE OF ATIVAN ADMINISTERED. FAMILY REMAINS AT BEDSIDE, WELL PALLIATIVE CARE. PASTORAL CARE ON THE WAY.
--- NOTE | 2021-03-13 14:48 | NUR ---
TIME OF 1448 PT EUGENIO STOKED AND WAS BRIEFLY BRADYCARDIC BEFORE HEART STOPPED. TIME OF 1448, FAMILY AT BEDSIDE AT TIME OF PASSING. DR. DSOUZA NOTIFIED.
--- NOTE | 2021-03-13 16:43 | NUR ---
TO HOME [facility]OSS [facility]. PT DC'D TO DONALDO MILLER OF [facility] AT 1632 WITH BELONGINGS.
--- NOTE | 2021-03-13 18:26 | NUR ---
Spiritual care note: Present with family throughout conversations about POC. Facilitated reminising and provided several prayers at their request. Del passed peacefully and surrounded by love.
== END 2021-03-13 14:48 | DRG 207 ==
LOC: ER 15:16 → MEDS 12-20 15:17 → PCU 03-05 17:40 → ICUW 03-07 08:55 → PCU 03-07 08:55 → ICUW 03-08 10:49
PROVIDERS: Family Medicine; Internal Medicine; Internal Medicine Critical Care Medicine; Internal Medicine Pulmonary Disease; Pharmacist; Physician Assistant; Radiology Radiation Oncology; ADMIT Internal Medicine
PROC: 5A09457 Assistance with Respiratory Ventilation, 24-96 Consecutive Hours, Continuous Positive Airway Pressure (ICD-10-PCS; 2021-03-07)
PROC: 5A1955Z Respiratory Ventilation, Greater than 96 Consecutive Hours (ICD-10-PCS; principal; 2021-03-08)
PROC: 0BH18EZ Insertion of Endotracheal Airway into Trachea, Via Natural or Artificial Opening Endoscopic (ICD-10-PCS; 2021-03-08)
PROC: 02HV33Z Insertion of Infusion Device into Superior Vena Cava, Percutaneous Approach (ICD-10-PCS; 2021-03-08)
DX: J69.0 Pneumonitis due to inhalation of food and vomit (principal); J96.21 Acute and chronic respiratory failure with hypoxia; J96.22 Acute and chronic respiratory failure with hypercapnia; Z68.41 Body mass index [BMI] 40.0-44.9, adult; E87.2 Acidosis; L03.112 Cellulitis of left axilla; I47.2 Ventricular tachycardia; J90 Pleural effusion, not elsewhere classified; Z66 Do not resuscitate; E87.6 Hypokalemia; E83.39 Other disorders of phosphorus metabolism; E66.01 Morbid (severe) obesity due to excess calories; Z51.5 Encounter for palliative care; G47.33 Obstructive sleep apnea (adult) (pediatric); Z20.822 Contact with and (suspected) exposure to COVID-19; J44.9 Chronic obstructive pulmonary disease, unspecified; L73.2 Hidradenitis suppurativa; Y95 Nosocomial condition; I49.3 Ventricular premature depolarization; I25.10 Atherosclerotic heart disease of native coronary artery without angina pectoris; F01.50 Vascular dementia, unspecified severity, without behavioral disturbance, psychotic disturbance, mood disturbance, and anxiety; R13.10 Dysphagia, unspecified; F44.4 Conversion disorder with motor symptom or deficit; H91.90 Unspecified hearing loss, unspecified ear; R82.71 Bacteriuria; I10 Essential (primary) hypertension; Z86.718 Personal history of other venous thrombosis and embolism; Z86.711 Personal history of pulmonary embolism; Z79.01 Long term (current) use of anticoagulants; Z74.01 Bed confinement status; Z79.899 Other long term (current) drug therapy; Z87.891 Personal history of nicotine dependence; Z98.890 Other specified postprocedural states; Z78.1 Physical restraint status
CPT/HCPCS: 31500; 36415; 36569; 36600; 51702; 70450; 71045; 76882; 80048; 80053; 80069; 80202; 81001; 82550; 82565; 82803; 82947; 83735; 83880; 84100; 84132; 84145; 84443; 84484; 85014; 85018; 85025; 85610; 87040; 87070; 87077; 87086; 87186; 87205; 93005; 93010; 93306; 94002; 94003; 94640; 94660; 94664; 94667; 94668; 94760; 94762; 97110; 97110-CO; 97110-CQ; 97162; 97166; 97168; 97530; 97530-CO; 97530-CQ; 97535-CO; 99285; A9270; C1751; C9113; G0378; J1940; J1956; J2060; J2270; J2704; J3010; J3370; J3480; J7030; J7040; J7050; J7060; U0004